=== PATIENT | female | born 1995 | race Caucasian/White ===

== ENCOUNTER → 2017-06-08 10:52 | Outpatient (CLI) | payer MEDICAID, SELFPAY ==
[2017-06-08 16:08] LABS: Chlamydia Trachomatis by PCR Negative (Negative); Neisserai gonorrhoeae by PCR Negative (Negative); Probe Check PASS; Sample Adequacy Control PASS; Specimen Processing Control PASS
== END ==
PROVIDERS: Family Provider Family Medicine; PCP Family Medicine; Visit Provider Obstetrics & Gynecology
DX: Z11.3 Encounter for screening for infections with a predominantly sexual mode of transmission (principal); Z32.01 Encounter for pregnancy test, result positive
CPT/HCPCS: 87491; 87591

== ENCOUNTER → 2017-06-21 16:17 | Outpatient (CLI) | payer MEDICAID, SELFPAY ==
[2017-06-21 18:03] LABS: Absolute Lymphocyte Count 2.36 X10^3/ul (0.83-4.51); Absolute Neutrophil Count 6.8 X10^3/uL (2.0-7.7); Basophil# 0.05 X10^3/uL; Basophil% 0.5 % (0-1); Eosinophil# 0.21 X10^3/uL; Eosinophils% 2.1 % (0-5); Hematocrit 38.9 % (37-47); Hemoglobin 13.1 g/dl (12.0-15.0); Lymphocyte # 2.36 X10^3/ul (4.0); Lymphocyte % 23.5 % (19-41); Mean Corp Hgb Conc 33.7 g/gl (32-36); Mean Corpuscular Volume 92.2 fL (81-99); Mean Platelet Vol. 11.2 fl (6.2-12.0); Monocyte# 0.58 X10^3/uL; Monocyte% 5.8 % (0-10); Neutrophil # 6.84 X10^3/uL (2.7-7.7); POSITIVE COUNT NO; POSITIVE DIFFERENTIAL NO; POSITIVE MORPHOLOGY NO; Platelet Count 169 K/mm3 (150-450); RBC Distribution Width CV 13.3 % (11.6-14.6); RBC Distribution Width SD 43.8 fl (35.1-43.9); Red Blood Count 4.22 M/mm3 (4.2-5.4); White Blood Count 10.1 K/mm3 (4.4-11.0)
[2017-06-21 18:40] LABS: Color, Urine Yellow (Yellow); Glucose, Dipstick Normal (Normal); Ketone-Dipstick Negative (Negative); Leukocyte Esterase-Dipstick Negative /ul (Negative); Nitrite-Dipstick Negative (Negative); Occult Blood-Urine Negative /ul (Negative); Protein-Dipstick Negative (Negative); Urine Bilirubin Dipstick Negative (Negative); Urine Clarity Clear (Clear); Urine Urobilinogen Normal (Normal); Urine pH 6.5 (5.0 - 8.0)
[2017-06-21 19:06] LABS: Thyroid Stim Hormone (TSH) 1.68 uIU/mL (0.358-3.74)
[2017-06-21 19:32] LABS: COTININE Drug Screen Negative (<200 ng/mL)
[2017-06-21 19:51] LABS: HIV - WCH Non-Reactive (Nonreactive); Rubella IgG 72.4 IU/mL
[2017-06-21 20:43] LABS: Amphetamine Urine VISTA NEGATIVE (<1000 ng/mL); Barbiturate Urine VISTA NEGATIVE (< 200 ng/mL); Benzodiazepine Urine VISTA NEGATIVE (< 200 ng/mL); Cocaine Urine VISTA NEGATIVE (< 300 ng/mL); Ecstacy Urine VISTA NEGATIVE (< 500 ng/mL); Methadone Urine VISTA NEGATIVE (< 300 ng/mL); PCP Urine VISTA NEGATIVE (< 25 ng/mL); THC Urine VISTA NEGATIVE (< 50 ng/mL); Vista UDS pH Range 6
[2017-06-23 10:19] LABS: HEPATITIS B SURFACE AG Negative (Negative); Hep C Antibodies 0.1 s/co ratio (0.0-0.9)
[2017-06-25 01:51] LABS: Prenatal RPR NONREACTIVE (NONREACTIVE)
== END ==
PROVIDERS: Visit Provider Obstetrics & Gynecology
DX: Z34.81 Encounter for supervision of other normal pregnancy, first trimester (principal)
CPT/HCPCS: 36415; 80307; 81002; 84443; 85025; 86703; 86762; 86803; 87340

== ENCOUNTER → 2017-10-03 08:38 | Outpatient (CLI) | payer BC, MEDICAID, SELFPAY ==
[2017-10-03 11:10] LABS: Hematocrit 36.1 % (37-47); Hemoglobin 12.1 g/dl (12.0-15.0); Mean Corp Hgb Conc 33.5 g/gl (32-36); Mean Corpuscular Hgb 31.3 pg (27.0-32.0); Mean Corpuscular Volume 93.3 fL (81-99); Mean Platelet Vol. 10.7 fl (6.2-12.0); Platelet Count 122 K/mm3 (150-450); RBC Distribution Width CV 13.1 % (11.6-14.6); RBC Distribution Width SD 44.3 fl (35.1-43.9); Red Blood Count 3.87 M/mm3 (4.2-5.4); White Blood Count 8.6 K/mm3 (4.4-11.0)
[2017-10-03 11:11] LABS: Scan Indicated on CBC? Y/N NO
[2017-10-03 11:19] LABS: Glucose Challenge Gest 1H 50g 76 mg/dL (70-140)
== END ==
PROVIDERS: Visit Provider Obstetrics & Gynecology
DX: Z34.82 Encounter for supervision of other normal pregnancy, second trimester (principal)
CPT/HCPCS: 36415; 82950; 85027

== ENCOUNTER → 2017-11-07 09:43 | Outpatient (CLI) | payer BC, MEDICAID, SELFPAY ==
[2017-11-07 11:12] LABS: Hematocrit 37.3 % (37-47); Hemoglobin 12.7 g/dl (12.0-15.0); Mean Corpuscular Hgb 32.2 pg (27.0-32.0); Mean Corpuscular Volume 94.4 fL (81-99); Mean Platelet Vol. 11.3 fl (6.2-12.0); Platelet Count 117 K/mm3 (150-450); RBC Distribution Width CV 12.7 % (11.6-14.6); RBC Distribution Width SD 42.4 fl (35.1-43.9); Red Blood Count 3.95 M/mm3 (4.2-5.4); White Blood Count 11.8 K/mm3 (4.4-11.0)
[2017-11-07 11:14] LABS: Scan Indicated on CBC? Y/N NO
[2017-11-07 12:49] LABS: Amphetamine Urine VISTA NEGATIVE (<1000 ng/mL); Barbiturate Urine VISTA NEGATIVE (< 200 ng/mL); Benzodiazepine Urine VISTA NEGATIVE (< 200 ng/mL); Cocaine Urine VISTA NEGATIVE (< 300 ng/mL); Ecstacy Urine VISTA NEGATIVE (< 500 ng/mL); Methadone Urine VISTA NEGATIVE (< 300 ng/mL); PCP Urine VISTA NEGATIVE (< 25 ng/mL); THC Urine VISTA NEGATIVE (< 50 ng/mL); Vista UDS pH Range 6
== END ==
PROVIDERS: Visit Provider Obstetrics & Gynecology
DX: O99.113 Other diseases of the blood and blood-forming organs and certain disorders involving the immune mechanism complicating pregnancy, third trimester (principal); D69.6 Thrombocytopenia, unspecified; Z3A.00 Weeks of gestation of pregnancy not specified
CPT/HCPCS: 36415; 80307; 85027

== ENCOUNTER → 2017-12-05 09:24 | Outpatient (CLI) | payer BC, MEDICAID, SELFPAY ==
[2017-12-05 11:16] LABS: Hematocrit 39.6 % (37-47); Hemoglobin 13.1 g/dl (12.0-15.0); Mean Corp Hgb Conc 33.1 g/gl (32-36); Mean Corpuscular Hgb 31.1 pg (27.0-32.0); Mean Corpuscular Volume 94.1 fL (81-99); Mean Platelet Vol. 11.5 fl (6.2-12.0); Platelet Count 120 K/mm3 (150-450); RBC Distribution Width CV 13.2 % (11.6-14.6); Red Blood Count 4.21 M/mm3 (4.2-5.4); White Blood Count 11.4 K/mm3 (4.4-11.0)
[2017-12-05 11:17] LABS: Scan Indicated on CBC? Y/N NO
[2017-12-05 13:51] LABS: Group B Strep DNA By PCR Negative (Negative); Internal Control PASS; Probe Check PASS; Specimen Processing Control PASS
== END ==
PROVIDERS: Visit Provider Obstetrics & Gynecology
DX: Z36.85 Encounter for antenatal screening for Streptococcus B (principal); O99.119 Other diseases of the blood and blood-forming organs and certain disorders involving the immune mechanism complicating pregnancy, unspecified trimester; D69.6 Thrombocytopenia, unspecified; Z3A.00 Weeks of gestation of pregnancy not specified
CPT/HCPCS: 36415; 85027; 87081; 87653

== ENCOUNTER 2017-12-10 14:00 | Outpatient (CLI) | payer BC, MEDICAID, SELFPAY ==
[2017-12-10 14:20] VITALS: BMI 29.5
--- NOTE | 2017-12-10 21:00 | OB.TRI.NOTE ---
History of Present Illness Was patient seen by the physician?: No Reason For Visit: R/O LABOR Date of Service: 12/10/17 Final ROD: 01/02/18 Final ROD Source: US <20 weeks Gestational age: 36 Weeks and 5 Days History of Present Illness: 22yo @ 36 5/7 weeks gestation with swelling in feet, contractions who is concerned about preeclampsia. Allergies No Known Allergies Allergy (Verified 12/10/17 14:21) Physical Exam Vitals: AVSS NST - FHR Rate Baby A Baseline: 125 Variability:: Moderate Accelerations:: 15 x 15 Decelerations:: None NST Reactive:: Yes FHR Category:: Category I Uterine Activity:: 1-2/10 Impression/Plan 22yo @ 36 5/7wga with edema, reactive NST -No headache, vision changes per report -BP wnl -d/c home
== END 2017-12-10 15:35 | disposition home or self-care (01) ==
LOC: WPOUT 14:07 → WP 14:09
PROVIDERS: Visit Provider Obstetrics & Gynecology
DX: O47.03 False labor before 37 completed weeks of gestation, third trimester (principal); O12.03 Gestational edema, third trimester; Z3A.36 36 weeks gestation of pregnancy
CPT/HCPCS: 59025; 99218; G0378

== ENCOUNTER 2017-12-24 15:55 | Outpatient (CLI) | payer BC, MEDICAID, SELFPAY ==
[2017-12-24 16:08] VITALS: BMI 31.1
--- NOTE | 2017-12-25 06:53 | OB.TRI.NOTE ---
History of Present Illness Date of Service: 12/24/17 Was patient seen by the physician?: No Reason For Visit: SWELLING Date of Service: 12/24/17 Final ROD: 01/02/18 Final ROD Source: US <20 weeks Gestational age: 38 Weeks and 6 Days History of Present Illness: Complaints of LE swelling. Denies headaches. Allergies No Known Allergies Allergy (Verified 12/10/17 14:21) Review of Systems Constitutional: Denies: Chills, Night Sweats Eyes: Denies: Double vision, Vision Change HEENT: Denies: Ear Pain, Eye Pain Cardiovascular: Reports: Edema - LE 1+. Denies: Chest Pain, Chest Pressure, Chest Tightness Respiratory: Denies: Shortness of Breath Gastrointestinal: Denies: Abdominal Pain Genitourinary: Denies: Dysuria Physical Exam General: Alert, Oriented x3, Cooperative, No apparent distress Cardiovascular: Regular rate, Regular Rhythm Lungs: Clear to auscultation, Normal air movement Abdomen: Soft, Non Tender, Non-Distended, Gravid, Appropriate for Gestational Age Neurological: Deep Tendon Reflexes 2+/4 and Symmetrical, Neuro grossly intact, - - No clonus Estimated gestational size: Appropriate for gestational size Presentation: Cephalic NST - FHR Rate Baby A Baseline: 140s Variability:: Moderate Accelerations:: 15 x 15 Decelerations:: None NST Reactive:: Yes, Appropriate for gestational age FHR Category:: Category I Uterine Activity:: Irregular Impression/Plan Some edema but no signs of preeclampsia. BP normal. Not in labor. Reassuring FHR status. Will consider repeat C/S vs . Will discuss in office at f/u visit Monday.
== END 2017-12-24 17:20 | disposition home or self-care (01) ==
LOC: WPOUT 16:03 → WP 16:04
PROVIDERS: Visit Provider Obstetrics & Gynecology
DX: O12.03 Gestational edema, third trimester (principal); Z3A.38 38 weeks gestation of pregnancy
CPT/HCPCS: 59025; 59050; 99218; G0378

== ENCOUNTER 2017-12-27 09:50 | Inpatient (IN) | payer BC, MEDICAID, SELFPAY ==
[2017-12-27] VITALS (19 sets, daily range): BP systolic 97–148; BP diastolic 53–88; PULSE 88–126; RESP 14–25; TEMP 36.1–37.1; O2SAT 96–100; BMI 30.9
[2017-12-27 10:46] LABS: Absolute Lymphocyte Count 1.77 X10^3/ul (0.83-4.51); Absolute Neutrophil Count 6.9 X10^3/uL (2.0-7.7); Basophil# 0.02 X10^3/uL; Basophil% 0.2 % (0-1); Eosinophil# 0.06 X10^3/uL; Eosinophils% 0.6 % (0-5); Hematocrit 38.3 % (37-47); Lymphocyte # 1.77 X10^3/ul (4.0); Lymphocyte % 18.8 % (19-41); Mean Corp Hgb Conc 33.9 g/gl (32-36); Mean Corpuscular Hgb 31.9 pg (27.0-32.0); Mean Corpuscular Volume 93.9 fL (81-99); Mean Platelet Vol. 11.4 fl (6.2-12.0); Monocyte# 0.61 X10^3/uL; Monocyte% 6.5 % (0-10); Neutrophil # 6.88 X10^3/uL (2.7-7.7); Neutrophil % 73.4 % (47-70); Platelet Count 106 K/mm3 (150-450); RBC Distribution Width SD 43.2 fl (35.1-43.9); Red Blood Count 4.08 M/mm3 (4.2-5.4); White Blood Count 9.4 K/mm3 (4.4-11.0)
[2017-12-27 10:49] LABS: POSITIVE COUNT NO; POSITIVE DIFFERENTIAL NO; POSITIVE MORPHOLOGY NO
[2017-12-27 10:52] LABS: International Normalized Ratio 0.9; Prothrombin Time (Protime)PT. 12.3 SECONDS (11.7-14.9)
[2017-12-27 10:53] LABS: Partial Thromboplast Time 25.1 Seconds (24.1-36.2)
--- NOTE | 2017-12-27 11:06 | DCINST_ITS ---
Discharge Diet: No Restrictions Discharge Activity: Return to Normal Activity, May Not Drive, May not drive while taking narcotic pain medications., May Shower Return to work on:: 02/26/18 May shower in (days): 0 May resume sexual activity in: 4-6 weeks Call your doctor if your incision/area has: Sudden Increased Bleeding, Increased Pain/ Swelling, Increased Redness, Foul Smelling Discharge, Swelling at the incision site Call your doctor if you observe: Fever of 101 or Higher, Inability to urinate, Inability to have a bowel movement, Using more than one pad per hour, Shortness of breath, Chest pain, Calf discomfort, Uncontrolled pain Remove Dressing in (days):: 3 Cleanse incision/area with: Soap & Water Additional Instructions: If you experience any of the following, contact your healthcare provider. * Bleeding that soaks a pad every hour for 2 hours * Fever 100.4 or higher * Unrelieved incision or abdominal pain * Swelling, redness, discharge or bleeding from your incision or episiotomy site * Your incision begins to separate * Problems urinating (including inability to urinate or burning while urinating) . * Visual changes * Severe headache * Flu-like symptoms * Pain or redness in one of both of your breasts * Pain, warmth, tenderness or swelling in your legs, especially the calf area * Frequent nausea and vomiting * Symptoms of depression or anxiety If you experience any of the following, call 911 or go to the nearest Emergency Room. * Chest pain * Problems breathing * Seizure activity * Partial or complete paralysis of a body part, slurred speech, weakness or drooping of the face, or a sudden inability to walk or hold your balance Allergies/Adverse Reactions: Allergies No Known Allergies Allergy (Verified 12/10/17 14:21) Medications to take at Discharge Vits [Prenatabs FA ] 1 tablet PO DAILY 06/10/15 Docusate Sodium [Colace] 100 mg PO BID PRN PRN #60 capsule 07/08/15 proMETHazine tablet [Phenergan tablet] 25 mg PO PRN PRN 12/10/17 Ibuprofen 600 mg PO 4X/DAY #30 tab 12/27/17 Oxycodone [Oxyir] 5 mg PO Q4H PRN PRN 7 Days #28 tab 12/27/17 The following prescriptions were given: Oxycodone [Oxyir] 5 mg PO Q4H PRN PRN 7 Days #28 tab PRN Reason: Mod-Severe Pain (4-02/14) Ibuprofen 600 mg PO 4X/DAY #30 tab Follow-Up: Call to make an appointment with your doctor for an incision check in 1-2 weeks. You will also need a 6 week post- follow up appointment. Test results from this visit will be discussed in further detail at your follow- up appointment, if applicable. Please Follow Up With: Wellington Bragg MD When: one week Primary Care Physician: Care Physician,No Primary [Primary Care Provider] - Proposed Discharge Date: 12/30/17
--- NOTE | 2017-12-27 11:08 | OP.PCM_ITS ---
Problem List (1) Previous section complicating Status: Chronic Report of Operation Date of Procedure: 12/27/17 Pre-Operative Diagnosis: Previous Section Requesting Repeat Post-Operative Diagnosis: Same Surgery/Procedure Performed:: Repeat Low Transverse Section Description of Surgical Findings:: Live male in vertex presentation. Amniotic fluid clear. weight [id number]. Apgars 8/9. Lower uterine segment extremely thin. Otherwise normal appearing uterus. Ovaries appear normal. No significant pelvic or abdominal adhesions noted. electrode cleaning machine operator: Khushbu Saenz Type of Anesthesia:: Spinal Anesthesiologist: Ethan Fry Special Medications: none Specimen's removed: none Drains: Tay Estimated Blood Loss (mL): 800cc Fluids Replaced: 1500cc LR Description of Procedure: Merced was taken to the OR with IV running. She was given 2 grams of Ancef intravenously prior to the surgery for surgical prophylaxis. SCDs were in place and operational throughout the case. Spinal anesthesia was then introduced without complication. A tay catheter was then placed. She was then prepped and draped in the lithotomy position with a leftward tilt. Once anesthesia was deemed adequate a Pfannesteil skin incision was made through the previous scar. The underlying subcutaneous tissue was dissected down to the level of fascia using blunt and sharp dissection. The fascia was then incised horizontally in the midline and this incision was extended bilaterally with the Lewis scissors. The upper portion of the fascial defect was grasped with two Natali clamps, elevated and the rectus muscles dissected off with blunt and sharp dissection. In a similar fashion the rectus muscles were dissected off the lower fascial defect. The rectus muscles were then in the midline , the peritoneum identified and entered sharply. The peritoneal defect was then enlarged using blunt retraction. A bladder blade was then placed. The vesicouterine peritoneum was then identified and entered sharply. A bladder flap was created. The bladder blade was replaced. The lower uterine segment was then incised in a transverse fashion. Once the cavity was entered the defect was enlarged using blunt lateral and superior traction. The bladder blade was removed and the baby's head was delivered atraumatically. The body was then delivered. The mouth was suctioned with a bulb suction. Delayed cord clamping was employed. The cord was then clamped and cut. The baby was then handed to the waiting nursery nurse for evaluation. The placenta was then delivered manually. The cavity was cleared of all clot and membranes. The uterus was then exteriorized. The bladder blade replaced. The uterine incision was then closed in two layers with #1 Vicryl suture. Hemostasis was excellent. The posterior cul de sac was then cleared of all clot and fluid. The uterus was then returned to the abdomen. The gutters were cleared of all clot and fluid. The uterine incision was reinspected and found to be hemostatic. The peritoneum was then closed with 2-0 Vicryl. The rectus muscles were reapproximated with 0-Vicryl suture. The fascia was closed with a running stitch of #1 Stratofix suture. The subcuticular tissue was closed with 2 -0 Vicryl. The skin was closed with a subcuticular stitch of 4-0 Monocryl suture. Sponge, lap, needle, and instrument counts were correct. She was taken to the recovery room in stable condition. Grafts/Implants Used: none - Complications none - Admit VTE Documentation VTE Present on Admission: No VTE Mechan Device Prophylaxis: SCD's VTE Pharm Prophylaxis ordered?: No
[2017-12-27] MEDS: Sodium Citrate/Citric Acid 30 ML UDC PO (11:51)
[2017-12-27] MEDS: Lactated Ringers 1,000 ML 999 ML IV ×2 (11:52→15:45)
[2017-12-27] MEDS: Lactated Ringers 1,000 ML 150 ML IV (11:53)
[2017-12-27] MEDS: Oxytocin 30 units/NS 500 ml 30 UNITS/500 ML IV.SOLN 167 UNITS IV (12:33)
[2017-12-27] MEDS: Lactated Ringers 1,000 ML 100 ML IV ×2 (14:41→16:39)
[2017-12-27] MEDS: 0.9% Normal Saline 1,000 ML 500 ML IV (16:15)
[2017-12-27 16:19] LABS: Absolute Lymphocyte Count 3.11 X10^3/ul (0.83-4.51); Absolute Neutrophil Count 15.2 X10^3/uL (2.0-7.7); Basophil# 0.04 X10^3/uL; Basophil% 0.2 % (0-1); Eosinophil# 0.03 X10^3/uL; Eosinophils% 0.2 % (0-5); Hematocrit 33.2 % (37-47); Hemoglobin 10.7 g/dl (12.0-15.0); Lymphocyte # 3.11 X10^3/ul (4.0); Mean Corp Hgb Conc 32.2 g/gl (32-36); Mean Corpuscular Hgb 30.9 pg (27.0-32.0); Mean Platelet Vol. 11.3 fl (6.2-12.0); Monocyte# 0.97 X10^3/uL; Neutrophil % 78.3 % (47-70); Platelet Count 162 K/mm3 (150-450); RBC Distribution Width CV 13.3 % (11.6-14.6); RBC Distribution Width SD 46.1 fl (35.1-43.9); Red Blood Count 3.46 M/mm3 (4.2-5.4); White Blood Count 19.4 K/mm3 (4.4-11.0)
[2017-12-27 16:20] LABS: POSITIVE COUNT NO; POSITIVE DIFFERENTIAL NO; POSITIVE MORPHOLOGY NO
[2017-12-27 16:29] LABS: Fibrinogen 447 mg/dl (203-444); Partial Thromboplast Time 23.4 Seconds (24.1-36.2)
--- NOTE | 2017-12-27 16:48 | NURSING ---
1535 Support person reported Merced feels nauseated, doesn't look good 1544 BP per monitor 61/32 O2 sat 95%. LR fluid bolus initiated. FF2/U and to the right, consistant with post op assessment, vag bleeding minimal 1546 47/23 O2 sat 100%. More staff called to room 1548 45/34 o2 sat 100% Pt to left side 1549 69/26 o2 sat 99% Dr Camron Fry ,anesthesia, and Dr Bragg called to come to room 1554 78/40 o2 sat 94%. Dr bragg here, performs U/S at bedside. Dr Camron Fry, Dr Huffman anesthesia here hemorrhage panel ordered, T&C x 2 units ordered 1601 labs drawn, 75/54 hr 108, 99% o2 sat Guru Fry and Nathanael left room 1603 2nd iv started normal saline, wide open. Dr bragg left room 1604 102/56 Pad changed, small clot noted, lochia remains small FF 2/U to the right 1609 118/50 1615 106/60 o2 sat 99% HR 110 radial. EKG applied 1619 123/59 P 126 resp 16 o2 sat 99 1624 135/87 p 112 o2 sat 99% 1626 lochia small fundus unchanged 1629 113/66 p114 r 25 o2 sat 99% t 97.0 temporal 1632sitting up talking on phone 1634 105/61 P115 r 20 1645 119/76 p 115 r 20 o2 sat 99% 1709 102/64 p136 r20 o2 sat 98 %. attempting to breast feed
--- NOTE | 2017-12-27 18:01 | NURSING ---
1731 Rn remaining at bedside. Pt sitting up semifowlers with support person at bedside. Reports feeling ok. BP 90/70. 1743 Dr. Bragg in room to evaluate pt. Pt sitting upright in bed talking with visitors. VS 102/61, 128, 28 97%
--- NOTE | 2017-12-27 18:08 | PCM.PN.OB ---
Subjective: Now appears well. No complaints. Objective: AFeb BP 100/60 - Physical Exam General: Alert, Oriented x3, Cooperative, No apparent distress Lungs: Clear to auscultation, Normal air movement Cardiovascular: Regular rate, Regular Rhythm Abdomen: Soft, Non Tender, Non-Distended, - - Incision intact Extremities: No edema Skin: No rashes Neurological: Neuro grossly intact Psych/Mental Status: Normal Affect Comment: Lochia light Vital Signs Temp Pulse Resp BP Pulse Ox 97.0 F L 122 H 14 98/59 L 97 12/27/17 16:29 12/27/17 17:25 12/27/17 17:25 12/27/17 17:25 12/27/17 17:25 Oxygen Delivery Method Room Air Weight: 215 lb 12.8 oz Body Mass Index (BMI) 30.9 Intake and Output for Last 24 Hours 12/25/17 12/26/17 12/27/17 23:59 23:59 23:59 Intake Total 2322 / 2322 Output Total 550 / 550 Balance 1772 / 1772 Laboratory Tests Past 24 Hrs 12/27/17 12/27/17 12/27/17 10:30 10:30 10:30 WBC 9.4 RBC 4.08 L Hgb 13.0 Hct 38.3 MCV 93.9 MCH 31.9 MCHC 33.9 RDW 13.0 RDW Differential 43.2 Plt Count 106 L MPV 11.4 Immature Gran % (Auto) 0.500 Neut % (Auto) 73.4 H Lymph % (Auto) 18.8 L [place] % (Auto) 6.5 Eos % (Auto) 0.6 Baso % (Auto) 0.2 Absolute Neuts (auto) 6.9 Absolute Lymphs (auto) 1.77 Total Counted Not Reportable PT 12.3 INR 0.9 APTT 25.1 Fibrinogen Blood Type O POSITIVE Antibody Screen NEGATIVE Crossmatch 12/27/17 12/27/17 12/27/17 10:30 16:00 16:00 WBC 19.4 H RBC 3.46 L Hgb 10.7 L Hct 33.2 L MCV 96.0 MCH 30.9 MCHC 32.2 RDW 13.3 RDW Differential 46.1 H Plt Count 162 MPV 11.3 Immature Gran % (Auto) 0.300 Neut % (Auto) 78.3 H Lymph % (Auto) 16.0 L [place] % (Auto) 5.0 Eos % (Auto) 0.2 Baso % (Auto) 0.2 Absolute Neuts (auto) 15.2 H Absolute Lymphs (auto) 3.11 Total Counted Not Reportable PT 13.0 INR 1.0 APTT 23.4 L Fibrinogen 447 H Blood Type Antibody Screen Crossmatch See Detail Medical Necessity - Tobacco Use Smoking Status: Former smoker Assessment/Plan All Active Problems Gestational hypertension with significant proteinuria, delivered (Acute) Was called to the bedside emergently for extremely low blood pressures as low as 40/25. I performed US with known postsurgical hematoma on the left lower pelvis measuring same as in OR. Uterus normal with no intracavitary fluid collection. No free fluid in the pelvis or abdomen noted. Urine output is adequate. CBC drawn and hgb 10.7. PT/ptt normal. Fibrinogen normal to high. BPs now better. Will repeat CBC to ensure stable.
[2017-12-27] MEDS: 0.9% Saline Lock 10 ML Syringe IV (18:28)
[2017-12-27 18:44] LABS: Hematocrit 31.2 % (37-47); Hemoglobin 10.1 g/dl (12.0-15.0); Mean Corp Hgb Conc 32.4 g/gl (32-36); Mean Corpuscular Hgb 30.5 pg (27.0-32.0); Mean Corpuscular Volume 94.3 fL (81-99); Mean Platelet Vol. 10.8 fl (6.2-12.0); Platelet Count 140 K/mm3 (150-450); RBC Distribution Width CV 13.3 % (11.6-14.6); RBC Distribution Width SD 45.2 fl (35.1-43.9); Red Blood Count 3.31 M/mm3 (4.2-5.4); Scan Indicated on CBC? Y/N NO; White Blood Count 18.2 K/mm3 (4.4-11.0)
[2017-12-27] MEDS: Cefazolin 1 GM/50 ML BAG IV (20:29)
[2017-12-28] VITALS (9 sets, daily range): BP systolic 101–119; BP diastolic 55–68; PULSE 96–123; RESP 16–18; TEMP 36–37; O2SAT 97–99
[2017-12-28] MEDS: Lactated Ringers 1,000 ML 100 ML IV (02:49)
[2017-12-28] MEDS: Cefazolin 1 GM/50 ML BAG IV (04:23)
--- NOTE | 2017-12-28 06:47 | PCM.PN.OB ---
Subjective: Some soreness but overall doing well. Bleeding light. Objective: Afeb VSS. Hgb pending. - Physical Exam General: Alert, Oriented x3, Cooperative, No apparent distress Lungs: Clear to auscultation, Normal air movement Cardiovascular: Regular rate, Regular Rhythm Abdomen: Non Tender, Non-Distended, - - incision dressing dry Extremities: Edema - mild Skin: No rashes Neurological: Neuro grossly intact Psych/Mental Status: Normal Affect Comment: lochia light Vital Signs Temp Pulse Resp BP Pulse Ox 96.8 F L 105 H 18 117/58 L 97 12/28/17 04:32 12/28/17 05:49 12/28/17 05:49 12/28/17 04:32 12/28/17 05:49 Oxygen Delivery Method Room Air Weight: 215 lb 12.8 oz Body Mass Index (BMI) 30.9 Intake and Output for Last 24 Hours 12/26/17 12/27/17 12/28/17 23:59 23:59 23:59 Intake Total 4100 / 4100 1048 / 1048 Output Total 775 / 775 600 / 600 Balance 3325 / 3325 448 / 448 Laboratory Tests Past 24 Hrs 12/27/17 12/27/17 12/27/17 10:30 10:30 10:30 WBC 9.4 RBC 4.08 L Hgb 13.0 Hct 38.3 MCV 93.9 MCH 31.9 MCHC 33.9 RDW 13.0 RDW Differential 43.2 Plt Count 106 L MPV 11.4 Immature Gran % (Auto) 0.500 Neut % (Auto) 73.4 H Lymph % (Auto) 18.8 L [place] % (Auto) 6.5 Eos % (Auto) 0.6 Baso % (Auto) 0.2 Absolute Neuts (auto) 6.9 Absolute Lymphs (auto) 1.77 Total Counted Not Reportable PT 12.3 INR 0.9 APTT 25.1 Fibrinogen Blood Type O POSITIVE Antibody Screen NEGATIVE Crossmatch 12/27/17 12/27/17 12/27/17 10:30 16:00 16:00 WBC 19.4 H RBC 3.46 L Hgb 10.7 L Hct 33.2 L MCV 96.0 MCH 30.9 MCHC 32.2 RDW 13.3 RDW Differential 46.1 H Plt Count 162 MPV 11.3 Immature Gran % (Auto) 0.300 Neut % (Auto) 78.3 H Lymph % (Auto) 16.0 L [place]ane % (Auto) 5.0 Eos % (Auto) 0.2 Baso % (Auto) 0.2 Absolute Neuts (auto) 15.2 H Absolute Lymphs (auto) 3.11 Total Counted Not Reportable PT 13.0 INR 1.0 APTT 23.4 L Fibrinogen 447 H Blood Type Antibody Screen Crossmatch See Detail 12/27/17 12/28/17 18:30 05:55 WBC 18.2 H Pending RBC 3.31 L Pending Hgb 10.1 L Pending Hct 31.2 L Pending MCV 94.3 Pending MCH 30.5 Pending MCHC 32.4 Pending RDW 13.3 Pending RDW Differential 45.2 H Pending Plt Count 140 L Pending MPV 10.8 Immature Gran % (Auto) Neut % (Auto) Lymph % (Auto) Dane % (Auto) Eos % (Auto) Baso % (Auto) Absolute Neuts (auto) Absolute Lymphs (auto) Total Counted PT INR APTT Fibrinogen Blood Type Antibody Screen Crossmatch Medical Necessity - Tobacco Use Smoking Status: Former smoker Assessment/Plan All Active Problems Gestational hypertension with significant proteinuria, delivered (Acute) Doing well on POD#1. Check hgb today. Continue routine PO care.
[2017-12-28 06:57] LABS: Hematocrit 25.3 % (37-47); Hemoglobin 8.3 g/dl (12.0-15.0); Mean Corp Hgb Conc 32.8 g/gl (32-36); Mean Corpuscular Hgb 31.6 pg (27.0-32.0); Mean Corpuscular Volume 96.2 fL (81-99); Mean Platelet Vol. 10.7 fl (6.2-12.0); Platelet Count 124 K/mm3 (150-450); RBC Distribution Width CV 13.4 % (11.6-14.6); RBC Distribution Width SD 43.9 fl (35.1-43.9); Red Blood Count 2.63 M/mm3 (4.2-5.4); White Blood Count 13.6 K/mm3 (4.4-11.0)
[2017-12-28 07:01] LABS: Scan Indicated on CBC? Y/N NO
[2017-12-28] MEDS: Ketorolac 30 MG/ML Syringe IV ×2 (08:37→16:29)
--- NOTE | 2017-12-28 11:55 | NURSING ---
maggi castellon dc'ed pt oob up to stand and sit in chair pt tolerated well; denies any dizziness; pt gait steady;
[2017-12-28] MEDS: oxyCODONE 5 MG Tablet PO ×3 (12:40→20:45)
--- NOTE | 2017-12-28 14:26 | NURSING ---
pt up walking in [place]
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
--- NOTE | 2017-12-28 16:00 | NURSING ---
pt having some gas pain rt shoulder; pt to br to void missed part of hat about 50 cc in hat unable to assess amount; pt back to bed on left side to try and pass some gas
[2017-12-28] MEDS: 0.9% Saline Lock 10 ML Syringe IV (16:29)
--- NOTE | 2017-12-28 18:29 | NURSING ---
[address] brito made aware of pts abd distention in upper abd. and not passing gas and referred gas pain under rt shoulder; pt has walked, rested on side, has bowel sounds, taken gas x- pt wants to take senekot to try and move bowels;
[2017-12-28] MEDS: Senna/Docusate Sodium 1 Tablet PO (18:37)
[2017-12-29] MEDS: oxyCODONE 5 MG Tablet PO ×4 (00:50→15:16)
[2017-12-29 02:35] VITALS: BP 118/59; PULSE 100; RESP 18; TEMP 36.7; O2SAT 88
[2017-12-29] MEDS: Ketorolac 30 MG/ML Syringe IV ×2 (02:37→12:36)
[2017-12-29 05:46] LABS: Hemoglobin 7.5 g/dl (12.0-15.0); Mean Corp Hgb Conc 32.6 g/gl (32-36); Mean Corpuscular Hgb 31.1 pg (27.0-32.0); Mean Corpuscular Volume 95.4 fL (81-99); Mean Platelet Vol. 10.7 fl (6.2-12.0); Platelet Count 128 K/mm3 (150-450); RBC Distribution Width CV 13.8 % (11.6-14.6); RBC Distribution Width SD 48.3 fl (35.1-43.9); Red Blood Count 2.41 M/mm3 (4.2-5.4); White Blood Count 9.5 K/mm3 (4.4-11.0)
[2017-12-29 05:51] LABS: Scan Indicated on CBC? Y/N NO
--- NOTE | 2017-12-29 08:30 | NURSING ---
PATIENT CHANGING INFANT'S DIAPER UPON ENTRY TO THE ROOM. WHEN THE URINATED ON CLOTHES AND CRIB SHEET PATIENT STATED, COME ON!WHY DID YOU HAVE TO DO THAT! IN A HARSH TONE. THEN ASSISTED WITH DIAPER CHANGE WHILE PATIENT CONTINUED TO EXPRESS HER FRUSTRATION WITH THE SITUATION. UPON RETURN TO THE ROOM WITH CLEAN LINEN THIS NURSE PATIENT INFANT.
[2017-12-29] MEDS: Prenatal Vits Tablet 1 TABLET PO (08:39)
[2017-12-29] MEDS: Senna/Docusate Sodium 1 Tablet PO (08:42)
[2017-12-29 08:53] VITALS: BP 101/60; PULSE 105; RESP 16; TEMP 36.5
--- NOTE | 2017-12-29 08:53 | PCM.PN.OB ---
Subjective: Cherish is sore and notes she is slow moving, but steady walking. Pain is improved with medication. No flatus yet. Tolerates a regular diet and shoulder gas related pain resolved. She denies chest pain, shortness of breath, lightheadedness or palpitations. Objective: avss - Physical Exam General: Alert, Oriented x3, Cooperative, No apparent distress HEENT: Atraumatic, Normocephalic Lungs: Clear to auscultation, Normal air movement Cardiovascular: Regular rate, Regular Rhythm, Normal S1, Normal S2 Abdomen: Bowel Sounds Present, Soft, Non Tender, Non-Distended, - - Fundus firm and nontender, incisional dressing c/d/i Extremities: No Calf Tenderness, - - trace LE edema Neurological: Neuro grossly intact Psych/Mental Status: Normal Affect, Appropriate, Alert and oriented to time, place, person, mood and affect Vital Signs Temp Pulse Resp BP Pulse Ox 98.1 F 100 18 118/59 L 88 12/29/17 02:35 12/29/17 02:35 12/29/17 02:35 12/29/17 02:35 12/29/17 02:35 Oxygen Delivery Method Room Air Weight: 97.885 kg Body Mass Index (BMI) 30.9 Intake and Output for Last 24 Hours 12/27/17 12/28/17 12/29/17 23:59 23:59 23:59 Intake Total 4100 / 4100 1775 / 1775 Output Total 775 / 775 1600 / 1600 200 / 200 Balance 3325 / 3325 175 / 175 -200 / -200 Laboratory Tests Past 24 Hrs 12/29/17 05:10 WBC 9.5 RBC 2.41 L Hgb 7.5 L Hct 23.0 L MCV 95.4 MCH 31.1 MCHC 32.6 RDW 13.8 RDW Differential 48.3 H Plt Count 128 L MPV 10.7 Medical Necessity - Tobacco Use Smoking Status: Former smoker Assessment/Plan All Active Problems Gestational hypertension with significant proteinuria, delivered (Acute) 22yo POD#2 s/p RLTCS with post-op anemia doing well. -Anemia - pt asx - recommend iron supplementation at home -Plan for d/c home today
[2017-12-29] MEDS: 0.9% Saline Lock 10 ML Syringe IV (12:37)
[2017-12-29 15:30] VITALS: BP 129/73; PULSE 101; RESP 18; TEMP 36.5
--- NOTE | 2017-12-29 16:06 | CASEMGMT ---
Social Work Labor and Delivery Unit Summary: Spoke with RN Roma today about observed interactions with mother and baby this morning. MOB appeared easily frustrated during a diaper change. Per RN, MOB has done better this afternoon of what RN has observed as far as lower frustration levels. This is not the first time this senior mortgage underwriter has been approached by nursing about MOB's observed frustration level, the first time was approached on 12-27-17 when MOB was feeding baby. In light of MOB having intermittent episodes of frustration, uncertainty as to level of support MOB will have after father of baby returns to work, and not clear on what choices MOB led MOB no longer having custody of older children this senior mortgage underwriter called [facility] ([facility]). Referral given to Shelbie Ya in the intake department. Brief maternal and infant histories provided. Reported also interactions with MOB and FOB during initial assessment, including FOBs comments and irritation about being asked to leave the room to talk with MOB. Assessment: MOB and baby are discharging home today. Community resource information have been given for home going. MOB has identified having all needed supplies for baby upon return home. [facility] has been alerted to discharge today. Plan: MOB and baby discharging home today. No other services requested or indicated. -SUMAYA Ying, CAR SP[employer]TER
== END 2017-12-29 15:55 | disposition home or self-care (01) | DRG 766 ==
PROVIDERS: Obstetrics & Gynecology; Admitting Provider Obstetrics & Gynecology; Visit Provider Obstetrics & Gynecology
PROC: 10D00Z1 Extraction of Products of Conception, Low, Open Approach (ICD-10-PCS; CPT 59514; principal; 2017-12-27 11:45)
DX: O34.211 Maternal care for low transverse scar from previous cesarean delivery (principal); N85.8 Other specified noninflammatory disorders of uterus; Z3A.39 39 weeks gestation of pregnancy; Z37.0 Single live birth; O14.94 Unspecified pre-eclampsia, complicating childbirth; Z87.891 Personal history of nicotine dependence
CPT/HCPCS: 85025; 85027; 85384; 85610; 85730; 86850; 86900; 86920; 99218; J7030; J7120; A4216; G0378; J2405

== ENCOUNTER → 2018-01-02 09:17 | Outpatient (CLI) | payer BC, MEDICAID, SELFPAY ==
[2018-01-02 09:34] LABS: Hemoglobin 7.5 g/dl (12.0-15.0); Mean Corp Hgb Conc 32.6 g/gl (32-36); Mean Platelet Vol. 9.1 fl (6.2-12.0); Platelet Count 178 K/mm3 (150-450); RBC Distribution Width CV 13.6 % (11.6-14.6); RBC Distribution Width SD 47.1 fl (35.1-43.9); Red Blood Count 2.42 M/mm3 (4.2-5.4); White Blood Count 11.4 K/mm3 (4.4-11.0)
[2018-01-02 09:38] LABS: Scan Indicated on CBC? Y/N NO
== END ==
PROVIDERS: Visit Provider Obstetrics & Gynecology
DX: O72.1 Other immediate postpartum hemorrhage (principal)
CPT/HCPCS: 36415; 85027

== ENCOUNTER → 2018-01-30 08:53 | Outpatient (CLI) | payer BC, SELFPAY ==
[2018-01-30 10:59] LABS: hCG Titer Quant., Serum 2 mIU/mL (<9 non-preg)
== END ==
PROVIDERS: Visit Provider Obstetrics & Gynecology
DX: Z30.9 Encounter for contraceptive management, unspecified (principal)
CPT/HCPCS: 36415; 84702

== ENCOUNTER → 2018-04-03 13:31 | Outpatient (CLI) | payer BC, MEDICAID, SELFPAY ==
[2018-04-03 15:58] LABS: Chlamydia Trachomatis by PCR Negative (Negative); Neisserai gonorrhoeae by PCR Negative (Negative); Probe Check PASS; Sample Adequacy Control PASS; Specimen Processing Control PASS
[2018-04-06 12:02] LABS: HPV Reflexed? NOT INDICATED
--- OUTSIDE RECORDS SUMMARY | 2018-05-30 02:46 | XMS RPT_ITS ---
:1995 Author Organization OHIP Support Name Relationship Address Phone WILLIE RUGGIERO Unavailable [address] + [address] [place] [address] BHAVANI HERNANDEZI Unavailable [address] + [place] [address] UE Unavailable Unavailable Unavailable WILLIE RUGGIERO Unavailable [address] + [address] [place] [address] MARY BRADY Unavailable [address] + [place] [address] UE Unavailable Unavailable Unavailable LEANDROJESSEDELVIN WILLIE Unavailable [address] + [address] [place] [address] MARY BRADY Unavailable [address] + [place] [address] UE Unavailable Unavailable Unavailable LEANDROJESSEDELVIN WILLIE Unavailable [address] + [address] [place] [address] MARY BRADY Unavailable [address] + [place] [address] UE Unavailable Unavailable Unavailable KISHANDELVIN WILLIE Unavailable [address] + [address] [place] [address] MARY BRADY Unavailable [address] + [place] [address] UE Unavailable Unavailable Unavailable LEANDROJESSEDELVIN WILLIE Unavailable [address] + [address] [place] [address] MARY BRADY Unavailable [address] + [place] [address] UE Unavailable Unavailable Unavailable LEANDROJESSEDELVIN WILLIE Unavailable [address] + [address] [place] [address] MARY BRADY Unavailable [address] + [place] [address] UE Unavailable Unavailable Unavailable WILLIE RUGGIERO Unavailable [address] + [address] [place] [address] HERNANDEZ BRADY Unavailable [address] + [place] [address] UE Unavailable Unavailable Unavailable WILLIE RUGGIERO Unavailable [address] + [address] [place] [address] HERNANDEZ BRADY Unavailable [address] + [place] [address] UE Unavailable Unavailable Unavailable WILLIE RUGGIERO Unavailable [address] + [address] [place] [address] HERNANDEZ BRADY Unavailable [address] + [place] [address] UE Unavailable Unavailable Unavailable WILLIE RUGGIERO Unavailable [address] + [address] [place] [address] HERNANDEZ BRADY Unavailable [address] + [place] [address] UE Unavailable Unavailable Unavailable WILLIE RUGGIERO Unavailable [address] + [address] [place] [address] HERNANDEZ BRADY Unavailable [address] + [place] [address] UE Unavailable Unavailable Unavailable Care Team Providers Name Role Phone Sienna Godfrey Attending Unavailable Malys, Nitza Primary Care Unavailable Seals, Wellington Attending Unavailable Malys, Nitza Primary Care Unavailable Seals, Wellington Attending Unavailable Seals, Wellington Attending Unavailable Seals, Wellington Attending Unavailable Seals, Wellington Attending Unavailable Seals, Wellington Admitting Unavailable Seals, Wellington Attending Unavailable SealWelilngton white Referring Unavailable Primay Care Physicia, No Primary Care Unavailable Shira Evangelista Attending Unavailable Shira Evangelista Referring Unavailable Primay Care Physicia, No Primary Care Unavailable Seals, Wellington Attending Unavailable Primay Care Physicia, No Primary Care Unavailable Jessica Pulido Attending Unavailable Primay Care Physicia, No Primary Care Unavailable Seals, Wellington Attending Unavailable Primay Care Physicia, No Primary Care Unavailable Seals, Wellington Attending Unavailable Primay Care Physicia, No Primary Care Unavailable PROBLEMS PROBLEMS DATE TYPE CONDITION / CODE ATTENDING STATUS SOURCE 04/03/2018 Unknown Z32.01 - Encounter SealWellington white for test, Community result positive / Hospital Z32.01(ICD-10) Repository 04/03/2018 Unknown Z11.3 - Encounter Seals, Wellington Pederson for screening for Community infections with a Hospital predominantly sexual Repository mode of transmission / Z11.3(ICD-10) 01/30/2018 Unknown Z30.9 - Encounter SealsWellington for contraceptive Community management, Hospital unspecified / Repository Z30.9(ICD-10) 12/29/2017 Unknown G89.18 - Other acute Seals, Wellington Pederson postprocedural pain Community / G89.18(ICD-10) Hospital Repository 12/05/2017 Unknown D69.6 - Seals, Wellington Pederson Thrombocytopenia, Community unspecified / Hospital D69.6(ICD-10) Repository 12/05/2017 Unknown Z36.85 - Encounter SealsWellington for Community screening for Hospital Streptococcus B / Repository Z36.85(ICD-10) 11/07/2017 Unknown Z34.83 - Encounter SealsWellington for supervision of Community other normal Hospital , third Repository trimester / Z34.83(ICD-10) 10/04/2017 Unknown Z34.82 - Encounter Seals, Wellington Pederson for supervision of Community other normal Hospital , second Repository trimester / Z34.82(ICD-10) 06/21/2017 Unknown Z34.81 - Encounter Seals, Wellington Pederson for supervision of Community other normal Hospital , first Repository trimester / Z34.81(ICD-10) PROCEDURES PROCEDURES No Procedure Records FoundRESULTS RESULTS CT/NG W[facility] BY PCR Collected: 04/03/2018 Status: F Source: [place] 8:50 AM [facility] REPOSITORY TYPE CODE TESTS RESULT OUT OF RANGE REFERENCE UNITS LAB L8200.2100 Negative Normal Chlam Negative Trac PCR LAB L8200.2200 Negative Normal NG by Negative PCR Performed By: #### L8200.1999 #### [facility] [address] [place], [address] PAP I-G W/RFX HRHPV Collected: 04/03/2018 Status: F Source: [place] 8:50 AM [facility] REPOSITORY Order Comment: CYTOLOGY INFORMATION: - CLINICAL INFORMATION: - DATE LMP/MENOPAUSE: RECENTLY STOPPED NURSING LMP - COLLECTION VIAL: Thin Prep Vial - DIRECTOR DIABETES SOURCE: CERVICAL/ENDOCERVICAL - COLLECTION TECHNIQUE: BRUSH/SPATULA Specimen Comment: [id number] Specimen Comment: Source.............Cervix;Endocervix Specimen Comment: Dates / Results....RECENTLY STOPPED NURSING Specimen Comment: No. of containers..01 ThinPrep Vial TYPE CODE TESTS RESULT OUT OF RANGE REFERENCE UNITS LAB L7400.0800 . Normal DIAGN Comment Result Comment: NEGATIVE FOR INTRAEPITHELIAL LESION AND MALIGNANCY. LAB L7400.0900 . Normal ADEQ Comment Result Comment: Satisfactory for evaluation. Endocervical and/or squamous metaplastic cells (endocervical component) are present. LAB L7400.1400 . Normal PERFORM Comment Result Comment: Argelia Chávez, Department Of Sociology Chair (ASCP) LAB L7400.2575 . Normal TEST METHOD Comment Result Comment: This liquid based ThinPrep(R) pap test was screened with the use of an image guided system. LAB L7400.2600 . Normal . COMM LAB L7400.2700 . Normal PAPSMR Comment Result Comment: The Pap smear is a screening test designed to aid in the detection of premalignant and malignant conditions of the uterine cervix. It is not a diagnostic procedure and should not be used as the sole means of detecting cervical cancer. Both false-positive and false-negative reports do occur. LAB L7400.2800 . Normal HPV RFLX Comment Result Comment: The HPV DNA reflex criteria were not met with this specimen result therefore, no HPV testing was performed. Performed at: - [facility] [id number] [address] Light: Kamala Chisholm MD, Phone: [phone] Performed By: #### L7400.0350 #### [facility] (refer to report for specific site) refer to report for address and phone number HCG TITER QUANT., Collected: 01/30/2018 Status: F Source: [place] SERUM 8:58 AM [facility] REPOSITORY TYPE CODE TESTS RESULT OUT OF RANGE REFERENCE UNITS LAB L700.8000 <9 non-preg mIU/mL Normal HCG 2 QUANT. Performed By: #### L700.8000 #### [facility] [address] [place], [address] CBC-COMPLETE BLOOD CNT Collected: 01/02/2018 Status: F Source: [place] NO DIFF 9:20 AM [facility] REPOSITORY TYPE CODE TESTS RESULT OUT OF RANGE REFERENCE UNITS LAB L100.1000 4.4-11.0 K/mm3 High WBC 11.4 LAB L100.1200 4.2-5.4 M/mm3 Low RBC 2.42 LAB L100.1300 12.0-15.0 g/dl Low HGB 7.5 LAB L100.1400 37-47 % Low HCT 23.0 LAB L100.1500 81-99 fL Normal MCV 95.0 LAB L100.1600 27.0-32.0 pg Normal MCH 31.0 LAB L100.1700 32-36 g/gl Normal MCHC 32.6 LAB L100.1810 11.6-14.6 % Normal RDW CV 13.6 LAB L100.1820 35.1-43.9 fl High RDW SD 47.1 LAB L100.1900 150-450 K/mm3 Normal PLT 178 LAB L100.2000 6.2-12.0 fl Normal MPV 9.1 Performed By: #### L100.0500 #### [facility] [address] [place], [address] DISCHARGE INSTRUCTION Observed: 12/29/2017 Status: F Source: [place] 8:27 AM [facility] REPOSITORY [facility] Medical Records Department [facility] [place] [address] Instructions for Home/Discharge Instructions 12/27/17 1104 MR#: [id number] Acct: [id number] Name: VIRGIL HERNANDEZ Rep #: [id number] : 1995 22 From: Wellington Bragg MD PCP: Care Physician, No Primary Status: ADM IN ADDENDUM by Shira Evangelista MD on 12/29/17 at 0827 Please also take iron supplement, Ferrous sulfate 325mg - 1 tab by mouth twice daily - a prescription was sent in to your pharmacy already. Date Shira Evangelista MD cc: No Primary Care Physician * Signed Discharge Diet: No Restrictions Discharge Activity: Return to Normal Activity, May Not Drive, May not drive while taking narcotic pain medications., May Shower Return to work on:: 02/26/18 May shower in (days): 0 May resume sexual activity in: 4-6 weeks Call your doctor if your incision/area has: Sudden Increased Bleeding, Increased Pain/ Swelling, Increased Redness, Foul Smelling Discharge, Swelling at the incision site Call your doctor if you observe: Fever of 101 or Higher, Inability to urinate, Inability to have a bowel movement, Using more than one pad per hour, Shortness of breath, Chest pain, Calf discomfort, Uncontrolled pain Remove Dressing in (days):: 3 Cleanse incision/area with: Soap AND Water Additional Instructions: If you experience any of the following, contact your healthcare provider. * Bleeding that soaks a pad every hour for 2 hours * Fever 100.4 or higher * Unrelieved incision or abdominal pain * Swelling, redness, discharge or bleeding from your incision or episiotomy site * Your incision begins to separate * Problems urinating (including inability to urinate or burning while urinating). * Visual changes * Severe headache * Flu-like symptoms * Pain or redness in one of both of your breasts * Pain, warmth, tenderness or swelling in your legs, especially the calf area * Frequent nausea and vomiting * Symptoms of depression or anxiety If you experience any of the following, call 911 or go to the nearest Emergency Room. * Chest pain * Problems breathing * Seizure activity * Partial or complete paralysis of a body part, slurred speech, weakness or drooping of the face, or a sudden inability to walk or hold your balance Allergies/Adverse Reactions: Allergies No Known Allergies Allergy (Verified 12/10/17 14:21) Medications to take at Discharge Vits [Prenatabs FA ] 1 tablet PO DAILY 06/10/15 Docusate Sodium [Colace] 100 mg PO BID PRN PRN #60 capsule 07/08/15 proMETHazine tablet [Phenergan tablet] 25 mg PO PRN PRN 12/10/17 Ibuprofen 600 mg PO 4X/DAY #30 tab 12/27/17 Oxycodone [Oxyir] 5 mg PO Q4H PRN PRN 7 Days #28 tab 12/27/17 The following prescriptions were given: Oxycodone [Oxyir] 5 mg PO Q4H PRN PRN 7 Days #28 tab PRN Reason: Mod-Severe Pain (4-10/10) Ibuprofen 600 mg PO 4X/DAY #30 tab Follow-Up: Call to make an appointment with your doctor for an incision check in 1-2 weeks. You will also need a 6 week post- follow up appointment. Test results from this visit will be discussed in further detail at your follow-up appointment, if applicable. Please Follow Up With: Wellington Bragg MD When: one week Primary Care Physician: Care Physician,No Primary [Primary Care Provider] - Proposed Discharge Date: 12/30/17 12/27/17 1106 <Electronically signed by Wellington Bragg MD> Date Wellington Bragg MD CC: No Primary Care Physician CBC-COMPLETE BLOOD CNT Collected: 12/29/2017 Status: F Source: [place] NO DIFF 5:10 AM [facility] REPOSITORY TYPE CODE TESTS RESULT OUT OF RANGE REFERENCE UNITS LAB L100.1000 4.4-11.0 K/mm3 Normal WBC 9.5 LAB L100.1200 4.2-5.4 M/mm3 Low RBC 2.41 LAB L100.1300 12.0-15.0 g/dl Low HGB 7.5 LAB L100.1400 37-47 % Low HCT 23.0 LAB L100.1500 81-99 fL Normal MCV 95.4 LAB L100.1600 27.0-32.0 pg Normal MCH 31.1 LAB L100.1700 32-36 g/gl Normal MCHC 32.6 LAB L100.1810 11.6-14.6 % Normal RDW CV 13.8 LAB L100.1820 35.1-43.9 fl High RDW SD 48.3 LAB L100.1900 150-450 K/mm3 Low PLT 128 LAB L100.2000 6.2-12.0 fl Normal MPV 10.7 Performed By: #### L100.0500 #### [facility] [address] [place], [place], [address] CBC-COMPLETE BLOOD CNT Collected: 12/28/2017 Status: F Source: [place] NO DIFF 5:55 AM [facility] REPOSITORY Order Comment: Comments: Day #1 Reason for Laboratory Test TYPE CODE TESTS RESULT OUT OF RANGE REFERENCE UNITS LAB L100.1000 4.4-11.0 K/mm3 High WBC 13.6 LAB L100.1200 4.2-5.4 M/mm3 Low RBC 2.63 LAB L100.1300 12.0-15.0 g/dl Low HGB 8.3 LAB L100.1400 37-47 % Low HCT 25.3 LAB L100.1500 81-99 fL Normal MCV 96.2 LAB L100.1600 27.0-32.0 pg Normal MCH 31.6 LAB L100.1700 32-36 g/gl Normal MCHC 32.8 LAB L100.1810 11.6-14.6 % Normal RDW CV 13.4 LAB L100.1820 35.1-43.9 fl Normal RDW SD 43.9 LAB L100.1900 150-450 K/mm3 Low PLT 124 LAB L100.2000 6.2-12.0 fl Normal MPV 10.7 Performed By: #### L100.0500 #### [facility] [address] [place], [place], [address] CBC-COMPLETE BLOOD CNT Collected: 12/27/2017 Status: F Source: [place] NO DIFF 6:30 PM [facility] REPOSITORY TYPE CODE TESTS RESULT OUT OF RANGE REFERENCE UNITS LAB L100.1000 4.4-11.0 K/mm3 High WBC 18.2 LAB L100.1200 4.2-5.4 M/mm3 Low RBC 3.31 LAB L100.1300 12.0-15.0 g/dl Low HGB 10.1 LAB L100.1400 37-47 % Low HCT 31.2 LAB L100.1500 81-99 fL Normal MCV 94.3 LAB L100.1600 27.0-32.0 pg Normal MCH 30.5 LAB L100.1700 32-36 g/gl Normal MCHC 32.4 LAB L100.1810 11.6-14.6 % Normal RDW CV 13.3 LAB L100.1820 35.1-43.9 fl High RDW SD 45.2 LAB L100.1900 150-450 K/mm3 Low PLT 140 LAB L100.2000 6.2-12.0 fl Normal MPV 10.8 Performed By: #### L100.0500 #### [facility] [place], [address] CBC W/DIFF, AUTOMATED Collected: 12/27/2017 Status: F Source: MAL[place] 4:00 PM [facility] REPOSITORY TYPE CODE TESTS RESULT OUT OF RANGE REFERENCE UNITS LAB L100.1000 4.4-11.0 K/mm3 High WBC 19.4 LAB L100.1200 4.2-5.4 M/mm3 Low RBC 3.46 LAB L100.1300 12.0-15.0 g/dl Low HGB 10.7 LAB L100.1400 37-47 % Low HCT 33.2 LAB L100.1500 81-99 fL Normal MCV 96.0 LAB L100.1600 27.0-32.0 pg Normal MCH 30.9 LAB L100.1700 32-36 g/gl Normal MCHC 32.2 LAB L100.1810 11.6-14.6 % Normal RDW CV 13.3 LAB L100.1820 35.1-43.9 fl High RDW SD 46.1 LAB L100.1900 150-450 K/mm3 Normal PLT 162 LAB L100.2000 6.2-12.0 fl Normal MPV 11.3 LAB L100.2100 47-70 % High NEUT% 78.3 LAB L100.2200 19-41 % Low LY% 16.0 LAB L100.2300 0-10 % Normal MONO% 5.0 LAB L100.2400 0-5 % Normal EO% 0.2 LAB L100.2500 0-1 % Normal BASO% 0.2 LAB L100.2550 0.0-0.9 % Normal IM GRAN % 0.300 Result Comment: IG% - Immature Granulocytes (promyelocytes, myelocytes and metamyelocytes) > 1% indicates that a LEFT SHIFT is Present. LAB L100.2620 2.0-7.7 X10 3/uL High Absolute Neut 15.2 LAB L100.2720 0.83-4.51 X10 3/ul Normal Absolute Lymph 3.11 Performed By: #### L100.0100 #### [facility] [address] [place], [address] PROTHROMBIN TIME W/INR Collected: 12/27/2017 Status: F Source: MALONE 4:00 PM [facility] REPOSITORY TYPE CODE TESTS RESULT OUT OF RANGE REFERENCE UNITS LAB L300.4150 11.7-14.9 SECONDS Normal PROTIME 13.0 LAB L300.4200 Normal INR 1.0 Performed By: #### L300.3900, L300.4310, L300.4700 #### [facility] [address] [facility] [place], [address] PARTIAL THROMBOPLAST Collected: 12/27/2017 Status: F Source: MALONE TIME 4:00 PM [facility] REPOSITORY TYPE CODE TESTS RESULT OUT OF REFERENCE UNITS RANGE LAB L300.4310 24.1-36.2 Seconds Low PTT 23.4 Performed By: #### L300.3900, L300.4310, L300.4700 #### [facility] [address] [facility] [place], [address] FIBRINOGEN Collected: 12/27/2017 Status: F Source: MAL[place] 4:00 PM [facility] REPOSITORY TYPE CODE TESTS RESULT OUT OF RANGE REFERENCE UNITS LAB L300.4700 203-444 mg/dl High FIB 447 Performed By: #### L300.3900, L300.4310, L300.4700 #### [facility] [address] [place], [address] OPERATIVE REPORT Observed: 12/27/2017 Status: F Source: MAL[place] 1:11 PM [facility] REPOSITORY [facility] Medical Records Department [address] [place] [address] Operative Report 12/27/17 1106 MR#: [id number] Acct: [id number] Name: VIRGIL HERNANDEZ Rep #: [id number] : 1995 22 From: Wellington Bragg MD PCP: Care Physician, No Primary Status: ADM IN Y Location: VT983-2 Problem List (1) Previous section complicating Status: Chronic Report of Operation Date of Procedure: 12/27/17 Pre-Operative Diagnosis: Previous Section Requesting Repeat Post-Operative Diagnosis: Same Surgery/Procedure Performed:: Repeat Low Transverse Section Description of Surgical Findings:: Live male in vertex presentation. Amniotic fluid clear. weight 40nv1jj. Apgars 8/9. Lower uterine segment extremely thin. Otherwise normal appearing uterus. Ovaries appear normal. No significant pelvic or abdominal adhesions noted. car supervisor: Khushbu Saenz Type of Anesthesia:: Spinal Anesthesiologist: Ethan Fry Special Medications: none Specimen's removed: none Drains: Tay Estimated Blood Loss (mL): 800cc Fluids Replaced: 1500cc LR Description of Procedure: Virgil was taken to the OR with IV running. She was given 2 grams of Ancef intravenously prior to the surgery for surgical prophylaxis. SCDs were in place and operational throughout the case. Spinal anesthesia was then introduced without complication. A tay catheter was then placed. She was then prepped and draped in the lithotomy position with a leftward tilt. Once anesthesia was deemed adequate a Pfannesteil skin incision was made through the previous scar. The underlying subcutaneous tissue was dissected down to the level of fascia using blunt and sharp dissection. The fascia was then incised horizontally in the midline and this incision was extended bilaterally with the Lewis scissors. The upper portion of the fascial defect was grasped with two Natali clamps, elevated and the rectus muscles dissected off with blunt and sharp dissection. In a similar fashion the rectus muscles were dissected off the lower fascial defect. The rectus muscles were then in the midline, the peritoneum identified and entered sharply. The peritoneal defect was then enlarged using blunt retraction. A bladder blade was then placed. The vesicouterine peritoneum was then identified and entered sharply. A bladder flap was created. The bladder blade was replaced. The lower uterine segment was then incised in a transverse fashion. Once the cavity was entered the defect was enlarged using blunt lateral and superior traction. The bladder blade was removed and the baby's head was delivered atraumatically. The body was then delivered. The mouth was suctioned with a bulb suction. Delayed cord clamping was employed. The cord was then clamped and cut. The baby was then handed to the waiting nursery nurse for evaluation. The placenta was then delivered manually. The cavity was cleared of all clot and membranes. The uterus was then exteriorized. The bladder blade replaced. The uterine incision was then closed in two layers with #1 Vicryl suture. Hemostasis was excellent. The posterior cul de sac was then cleared of all clot and fluid. The uterus was then returned to the abdomen. The gutters were cleared of all clot and fluid. The uterine incision was reinspected and found to be hemostatic. The peritoneum was then closed with 2-0 Vicryl. The rectus muscles were reapproximated with 0-Vicryl suture. The fascia was closed with a running stitch of #1 Stratofix suture. The subcuticular tissue was closed with 2-0 Vicryl. The skin was closed with a subcuticular stitch of 4-0 Monocryl suture. Sponge, lap, needle, and instrument counts were correct. She was taken to the recovery room in stable condition. Grafts/Implants Used: none - Complications none - Admit VTE Documentation VTE Present on Admission: No VTE Mechan Device Prophylaxis: SCD's VTE Pharm Prophylaxis ordered?: No 12/27/17 1311 <Electronically signed by Wellington Bragg MD> Date Wellington Bragg MD CC: No Primary Care Physician; Wellington Bragg MD Signed CBC W/DIFF, AUTOMATED Collected: 12/27/2017 Status: F Source: [place] 10:30 AM [facility] REPOSITORY TYPE CODE TESTS RESULT OUT OF RANGE REFERENCE UNITS LAB L100.1000 4.4-11.0 K/mm3 Normal WBC 9.4 LAB L100.1200 4.2-5.4 M/mm3 Low RBC 4.08 LAB L100.1300 12.0-15.0 g/dl Normal HGB 13.0 LAB L100.1400 37-47 % Normal HCT 38.3 LAB L100.1500 81-99 fL Normal MCV 93.9 LAB L100.1600 27.0-32.0 pg Normal MCH 31.9 LAB L100.1700 32-36 g/gl Normal MCHC 33.9 LAB L100.1810 11.6-14.6 % Normal RDW CV 13.0 LAB L100.1820 35.1-43.9 fl Normal RDW SD 43.2 LAB L100.1900 150-450 K/mm3 Low PLT 106 LAB L100.2000 6.2-12.0 fl Normal MPV 11.4 LAB L100.2100 47-70 % High NEUT% 73.4 LAB L100.2200 19-41 % Low LY% 18.8 LAB L100.2300 0-10 % Normal MONO% 6.5 LAB L100.2400 0-5 % Normal EO% 0.6 LAB L100.2500 0-1 % Normal BASO% 0.2 LAB L100.2550 0.0-0.9 % Normal IM GRAN % 0.500 Result Comment: IG% - Immature Granulocytes (promyelocytes, myelocytes and metamyelocytes) > 1% indicates that a LEFT SHIFT is Present. LAB L100.2620 2.0-7.7 X10 3/uL Normal Absolute Neut 6.9 LAB L100.2720 0.83-4.51 X10 3/ul Normal Absolute Lymph 1.77 Performed By: #### L100.0100 #### [facility] [address] [place] [address], [address] PROTHROMBIN TIME W/INR Collected: 12/27/2017 Status: F Source: [place] 10:30 AM [facility] REPOSITORY TYPE CODE TESTS RESULT OUT OF RANGE REFERENCE UNITS LAB L300.4150 11.7-14.9 SECONDS Normal PROTIME 12.3 LAB L300.4200 Normal INR 0.9 Performed By: #### L300.3900, L300.4310 #### [facility] [address] [place], [address] PARTIAL THROMBOPLAST Collected: 12/27/2017 Status: F Source: MAL[place] TIME 10:30 AM [facility] REPOSITORY TYPE CODE TESTS RESULT OUT OF RANGE REFERENCE UNITS LAB L300.4310 24.1-36.2 Seconds Normal PTT 25.1 Performed By: #### L300.3900, L300.4310 #### [facility] [address] [facility] [address] [place], [address] TYPE AND SCREEN Collected: 12/27/2017 Status: F Source: [place] 10:30 AM [facility] REPOSITORY Order Comment: Reason for Type AND Screen/Red Cells: SURGERY Type of Surgery: TYPE CODE TESTS RESULT OUT OF RANGE REFERENCE UNITS LAB B10.0800 O Normal BLOOD TYPE GEL POSITIVE LAB B100.4000 Normal Antibody NEGATIVE Screen Performed By: #### B101.7450 #### [facility] [address] [facility] [place], [address] CBC-COMPLETE BLOOD CNT Collected: 12/05/2017 Status: F Source: [place] NO DIFF 9:26 AM [facility] REPOSITORY TYPE CODE TESTS RESULT OUT OF RANGE REFERENCE UNITS LAB L100.1000 4.4-11.0 K/mm3 High WBC 11.4 LAB L100.1200 4.2-5.4 M/mm3 Normal RBC 4.21 LAB L100.1300 12.0-15.0 g/dl Normal HGB 13.1 LAB L100.1400 37-47 % Normal HCT 39.6 LAB L100.1500 81-99 fL Normal MCV 94.1 LAB L100.1600 27.0-32.0 pg Normal MCH 31.1 LAB L100.1700 32-36 g/gl Normal MCHC 33.1 LAB L100.1810 11.6-14.6 % Normal RDW CV 13.2 LAB L100.1820 35.1-43.9 fl High RDW SD 45.0 LAB L100.1900 150-450 K/mm3 Low PLT 120 LAB L100.2000 6.2-12.0 fl Normal MPV 11.5 Performed By: #### L100.0500 #### [facility] [address] [facility] [address] [place], [place], [address] GROUP B STREP DNA Collected: 12/05/2017 Status: F Source: BG BY PCR 9:15 AM [facility] REPOSITORY Order Comment: Source: Vaginal-Rectal TYPE CODE TESTS RESULT OUT OF RANGE REFERENCE UNITS LAB L8200.0100 Negative Normal GBS TEST Negative RESULT Performed By: #### L8200.0000 #### [facility] [address] [place], [place], [address] Observed: 12/05/2017 Status: F Source: BG CULTURE, GROUP B 12:00 AM [facility] STREPTOCOCCUS REPOSITORY ELSA Culture Group B Beta Streptococcus is not isolated. Performed By: #### M100.1800 #### [facility] [address] [place], [place], [id number] URINE DRUG SCREEN Collected: 11/07/2017 Status: F Source: BG (VISTA) 9:46 AM [facility] REPOSITORY Order Comment: List of Drugs Taken or Suspected? UNK TYPE CODE TESTS RESULT OUT OF RANGE REFERENCE UNITS LAB L505.0075 TO BE Normal CONFIRMED Result Comment: CONFIRMATORY TESTING FOR ALL POSITIVE URINE DRUG SCREEN RESULTS WILL ONLY BE SENT OUT UPON PHYSICIAN ORDER. VISTA Urine Drug Screen methods provide only preliminary analytical test results. A more specific alternate chemical method must be used in order to obtain a confirmed analytical result. Gas chromatography/mass spectrometery (GC/MS) is the preferred confirmatory method. Clinical consideration and professional judgement should be applied to any drug of abuse test result, particularly when preliminary positive results are used. URINE TCA TESTING MUST BE ORDERED SEPARATELY. USE TEST MNEMONIC: [facility] LAB L505.5005 VISTA UDS PH 6 Normal LAB L505.5015 <1000 ng/mL AMPHETAMINES Normal NEGATIVE LAB L505.5025 < 200 ng/mL BARBITIURATES Normal NEGATIVE LAB L505.5035 < 200 ng/mL BENZODIAZIPINE Normal NEGATIVE LAB L505.5045 < 300 ng/mL COCAINE Normal NEGATIVE LAB L505.5055 < 500 ng/mL ECSTACY Normal NEGATIVE LAB L505.5065 < 300 ng/mL METHADONE Normal NEGATIVE LAB L505.5075 < 300 ng/mL OPIATES Normal NEGATIVE LAB L505.5085 < 25 ng/mL PCP Normal NEGATIVE LAB L505.5095 < 50 ng/mL THC Normal NEGATIVE Performed By: #### L505.5000 #### [facility] [address] [place], [address] CBC-COMPLETE BLOOD CNT Collected: 11/07/2017 Status: F Source: BG NO DIFF 9:45 AM [facility] REPOSITORY TYPE CODE TESTS RESULT OUT OF RANGE REFERENCE UNITS LAB L100.1000 4.4-11.0 K/mm3 High WBC 11.8 LAB L100.1200 4.2-5.4 M/mm3 Low RBC 3.95 LAB L100.1300 12.0-15.0 g/dl Normal HGB 12.7 LAB L100.1400 37-47 % Normal HCT 37.3 LAB L100.1500 81-99 fL Normal MCV 94.4 LAB L100.1600 27.0-32.0 pg High MCH 32.2 LAB L100.1700 32-36 g/gl Normal MCHC 34.0 LAB L100.1810 11.6-14.6 % Normal RDW CV 12.7 LAB L100.1820 35.1-43.9 fl Normal RDW SD 42.4 LAB L100.1900 150-450 K/mm3 Low PLT 117 LAB L100.2000 6.2-12.0 fl Normal MPV 11.3 Performed By: #### L100.0500 #### [facility] [address] [place], [address] PROGRESS Observed: 10/06/2017 Status: COMPLETED Source: [place] 7:40 PM [facility] REPOSITORY HNO ID: [id number] Author: Stanley Dougherty Service: (none) Author Type: Nurse Practitioner Type: Progress Notes Filed: 10/06/2017 7:55 PM Note Text: Subjective HPI HPI Virgil Ruggiero is a 22 year old female who presents today for CC of rash for 1 year. Has tried nothing. Symptoms are worsened by nothing. Risk factors none, patient is currently . .Patient presents with: Rash No past medical history on file. No past surgical history on file. ALLERGIES Patient has no known allergies. MEDICATIONS 25/iron fum/folic/dha (-1 ORAL) Take 1 tablet by mouth. albuterol HFA (PROAIR HFA) 90 mcg/actuation inhaler Inhale 2 Puffs as instructed every 4 hours as needed. No family history on file. Social History Substance Use Topics - Smoking status: Former Smoker - Smokeless tobacco: Never Used - Alcohol use Not on file Review of Systems Constitutional: Negative for chills and fever. Skin: Positive for itching and rash. Objective Pulse 100, temperature 36.8 ?C (98.2 ?F), temperature source Left Tympanic, resp. rate 18, weight 83.9 kg (185 lb), SpO2 99 %. Physical Exam Constitutional: She is oriented to person, place, and time and well-developed, well-nourished, and in no distress. Non-toxic appearance. She does not have a sickly appearance. No distress. HENT: Head: Normocephalic and atraumatic. Pulmonary/Chest: Effort normal. No accessory muscle usage. No respiratory distress. Neurological: She is alert and oriented to person, place, and time. Skin: She is not diaphoretic. Upper back, chest, neck have light colored circular patches, some coalesced. No erythema, edema, exudates, or other definable lesions. ASSESSMENT/PLAN: 1. Tinea versicolor - ICD9: 111.0, ICD10: B36.0 -watch and wait for now, patient . Can check with phlebotomy technician, but may be safer to treat after of child. Prescription instructions reviewed with patient as applicable. Patient advised if symptoms do not improve or if symptoms worsen sooner, to contact the office for further evaluation by their primary care physician. Potential red flag symptoms discussed with the patient. Reviewed appropriate action plan to take if red flag symptoms occur. Patient agreeable to treatment plan. Stanley Dougherty APRN.CNP CNOV Observed: 10/06/2017 Status: COMPLETED Source: [place] 7:30 PM [facility] REPOSITORY Office Visit (WSTR) VIRGIL RUGGIERO ([id number]) 1995 F Date Time Provider Department 10/06/17 7:30 PM STANLEY DOUGHERTY) [facility] During your visit today, we recorded the following information about you: Temperature Pulse Respiration Weight 98.2 degrees 100/minute 18/minute 83.9 kg Stanley Dougherty APRN.CNP 10/06/2017 7:55 PM Signed Subjective HPI HPI Virgil Ruggiero is a 22 year old female who presents today for CC of rash for 1 year. Has tried nothing. Symptoms are worsened by nothing. Risk factors none, patient is currently . .Patient presents with: Rash No past medical history on file. No past surgical history on file. ALLERGIES Patient has no known allergies. MEDICATIONS 25/iron fum/folic/dha (-1 ORAL) Take 1 tablet by mouth. albuterol HFA (PROAIR HFA) 90 mcg/actuation inhaler Inhale 2 Puffs as instructed every 4 hours as needed. No family history on file. Social History Substance Use Topics - Smoking status: Former Smoker - Smokeless tobacco: Never Used - Alcohol use Not on file Review of Systems Constitutional: Negative for chills and fever. Skin: Positive for itching and rash. Objective Pulse 100, temperature 36.8 ?C (98.2 ?F), temperature source Left Tympanic, resp. rate 18, weight 83.9 kg (185 lb), SpO2 99 %. Physical Exam Constitutional: She is oriented to person, place, and time and well-developed, well-nourished, and in no distress. Non-toxic appearance. She does not have a sickly appearance. No distress. HENT: Head: Normocephalic and atraumatic. Pulmonary/Chest: Effort normal. No accessory muscle usage. No respiratory distress. Neurological: She is alert and oriented to person, place, and time. Skin: She is not diaphoretic. Upper back, chest, neck have light colored circular patches, some coalesced. No erythema, edema, exudates, or other definable lesions. ASSESSMENT/PLAN: 1. Tinea versicolor - ICD9: 111.0, ICD10: B36.0 -watch and wait for now, patient . Can check with phlebotomy technician, but may be safer to treat after of child. Prescription instructions reviewed with patient as applicable. Patient advised if symptoms do not improve or if symptoms worsen sooner, to contact the office for further evaluation by their primary care physician. Potential red flag symptoms discussed with the patient. Reviewed appropriate action plan to take if red flag symptoms occur. Patient agreeable to treatment plan. Stanley Dougherty APRN.STABLE HELPER Referring Provider: SELF [200] Allergies As of Date: 10/06/2017 (No Known Allergies) Date Reviewed: 10/06/2017 Reviewed by: Stanley (Plastic Duplicator) - Fully Assessed Reason for Visit: Rash [1087] Primary Visit Diagnosis:Tinea versicolor [B36.0] Prescriptions as of 10/06/2017 Sig: -1 ORAL Take 1 tablet by mouth. ALBUTEROL SULFATE HFA 90 MCG/* Inhale 2 Puffs as instructed * Problem List As Of Date: 10/06/2017 (None) Encounter Status:Closed by STANLEY DOUGHERTY CNP on 10/06/17 CBC-COMPLETE BLOOD CNT Collected: 10/03/2017 Status: F Source: BG NO DIFF 8:51 AM [facility] REPOSITORY TYPE CODE TESTS RESULT OUT OF RANGE REFERENCE UNITS LAB L100.1000 4.4-11.0 K/mm3 Normal WBC 8.6 LAB L100.1200 4.2-5.4 M/mm3 Low RBC 3.87 LAB L100.1300 12.0-15.0 g/dl Normal HGB 12.1 LAB L100.1400 37-47 % Low HCT 36.1 LAB L100.1500 81-99 fL Normal MCV 93.3 LAB L100.1600 27.0-32.0 pg Normal MCH 31.3 LAB L100.1700 32-36 g/gl Normal MCHC 33.5 LAB L100.1810 11.6-14.6 % Normal RDW CV 13.1 LAB L100.1820 35.1-43.9 fl High RDW SD 44.3 LAB L100.1900 150-450 K/mm3 Low PLT 122 LAB L100.2000 6.2-12.0 fl Normal MPV 10.7 Performed By: #### L100.0500 #### [facility] [address] [place], [place], [address] GLUCOSE CHALLENGE GEST Collected: 10/03/2017 Status: F Source: BG 1H 50G 8:51 AM [facility] REPOSITORY TYPE CODE TESTS RESULT OUT OF RANGE REFERENCE UNITS LAB L501.0250 70-140 mg/dL Normal GLU GEST 76 50g 1H Performed By: #### L501.0250 #### [facility] [address] [place], [address] URINE DRUG SCREEN Collected: 06/21/2017 Status: F Source: BG (JOHANTA) 4:18 PM [facility] REPOSITORY Order Comment: List of Drugs Taken or Suspected? UNK TYPE CODE TESTS RESULT OUT OF RANGE REFERENCE UNITS LAB L505.0075 TO BE Normal CONFIRMED Result Comment: CONFIRMATORY TESTING FOR ALL POSITIVE URINE DRUG SCREEN RESULTS WILL ONLY BE SENT OUT UPON PHYSICIAN ORDER. VISTA Urine Drug Screen methods provide only preliminary analytical test results. A more specific alternate chemical method must be used in order to obtain a confirmed analytical result. Gas chromatography/mass spectrometery (GC/MS) is the preferred confirmatory method. Clinical consideration and professional judgement should be applied to any drug of abuse test result, particularly when preliminary positive results are used. URINE TCA TESTING MUST BE ORDERED SEPARATELY. USE TEST MNEMONIC: [facility] LAB L505.5005 VISTA UDS PH 6 Normal LAB L505.5015 <1000 ng/mL AMPHETAMINES Normal NEGATIVE LAB L505.5025 < 200 ng/mL BARBITIURATES Normal NEGATIVE LAB L505.5035 < 200 ng/mL BENZODIAZIPINE Normal NEGATIVE LAB L505.5045 < 300 ng/mL COCAINE Normal NEGATIVE LAB L505.5055 < 500 ng/mL ECSTACY Normal NEGATIVE LAB L505.5065 < 300 ng/mL METHADONE Normal NEGATIVE LAB L505.5075 < 300 ng/mL OPIATES Normal NEGATIVE LAB L505.5085 < 25 ng/mL PCP Normal NEGATIVE LAB L505.5095 < 50 ng/mL THC Normal NEGATIVE Performed By: #### L505.5000, L505.6240 #### [facility] [address] [place], [address] NICOTINE URINE DRUG Collected: 06/21/2017 Status: F Source: BG SCREEN 4:18 PM [facility] REPOSITORY Order Comment: List of Drugs Taken or Suspected? UNK TYPE CODE TESTS RESULT OUT OF RANGE REFERENCE UNITS LAB L505.6250 TO BE Normal CONFIRMED Result Comment: CONFIRMATORY TESTING FOR ALL POSITIVE URINE DRUG SCREEN RESULTS WILL ONLY BE SENT OUT UPON PHYSICIAN ORDER. The results of Urine Drug Screen methods provide only preliminary analytical test results. A more specific alternate chemical method must be used in order to obtain a confirmed analytical result. Gas chromatography/mass spectrometery (GC/MS) is the preferred confirmatory method. Clinical consideration and professional judgement should be applied to any drug of abuse test result, particularly when preliminary positive results are used. LAB L505.6270 <200 ng/mL Normal COT DRG Negative SCREEN Result Comment: Cotinine is the first-stage metabolite of Nicotine. Performed By: #### L505.5000, L505.6240 #### [facility] [place], [address] CBC W/DIFF, AUTOMATED Collected: 06/21/2017 Status: F Source: [place] 4:18 PM [facility] REPOSITORY TYPE CODE TESTS RESULT OUT OF RANGE REFERENCE UNITS LAB L100.1000 4.4-11.0 K/mm3 Normal WBC 10.1 LAB L100.1200 4.2-5.4 M/mm3 Normal RBC 4.22 LAB L100.1300 12.0-15.0 g/dl Normal HGB 13.1 LAB L100.1400 37-47 % Normal HCT 38.9 LAB L100.1500 81-99 fL Normal MCV 92.2 LAB L100.1600 27.0-32.0 pg Normal MCH 31.0 LAB L100.1700 32-36 g/gl Normal MCHC 33.7 LAB L100.1810 11.6-14.6 % Normal RDW CV 13.3 LAB L100.1820 35.1-43.9 fl Normal RDW SD 43.8 LAB L100.1900 150-450 K/mm3 Normal PLT 169 LAB L100.2000 6.2-12.0 fl Normal MPV 11.2 LAB L100.2100 47-70 % Normal NEUT% 68.0 LAB L100.2200 19-41 % Normal LY% 23.5 LAB L100.2300 0-10 % Normal MONO% 5.8 LAB L100.2400 0-5 % Normal EO% 2.1 LAB L100.2500 0-1 % Normal BASO% 0.5 LAB L100.2550 0.0-0.9 % Normal IM GRAN % 0.100 Result Comment: IG% - Immature Granulocytes (promyelocytes, myelocytes and metamyelocytes) > 1% indicates that a LEFT SHIFT is Present. LAB L100.2620 2.0-7.7 X10 3/uL Normal Absolute Neut 6.8 LAB L100.2720 0.83-4.51 X10 3/ul Normal Absolute Lymph 2.36 Performed By: #### L100.0100 #### [facility] [address] [place], [place], [address] URINALYSIS, ROUTINE Collected: 06/21/2017 Status: F Source: BG (DIPSTICK) 4:18 PM [facility] REPOSITORY Order Comment: How was Urine Obtained? Urine, Random TYPE CODE TESTS RESULT OUT OF RANGE REFERENCE UNITS LAB L400.3000 Yellow COLOR Normal Yellow LAB L400.3050 Clear Normal CLARITY Clear LAB L400.3200 Normal mg/dl Normal GLUCOSE, UR Normal LAB L400.3300 Negative mg/dL Normal BILIRUBIN URINE Negative LAB L400.3400 Negative mg/dl Normal KETONE UR Negative LAB L400.3465 1.002-1.030 Normal SP.GR. DIPSTX 1.010 LAB L400.3550 5.0 - 8.0 pH UR Normal 6.5 LAB L400.3600 Negative mg/dl PROT Normal DIPSTX Negative LAB L400.3700 Normal mg/dl Normal UROBILI Normal LAB L400.3750 Negative Normal NITRITE UR Negative LAB L400.3780 Negative /ul Normal OCCULT BLOOD-UR Negative LAB L400.3800 Negative /ul LEUK Normal ESTERASE Negative Performed By: #### L400.2011 #### [facility] [place], [place], [id number] T AND S-NO Collected: 06/21/2017 Status: F Source: BG CHARGE W/PNP 4:18 PM [facility] REPOSITORY Order Comment: Reason for Type AND Screen/Red Cells: Surgery? N TYPE CODE TESTS RESULT OUT OF RANGE REFERENCE UNITS LAB B10.0800 O Normal BLOOD POSITIVE TYPE GEL LAB B100.4050 Normal Ab SCREEN NEGATIVE GEL Performed By: #### B100.7550 #### [facility] [address] [place], [place], [id number] THYROID STIM HORMONE Collected: 06/21/2017 Status: F Source: BG (TSH) 4:18 PM [facility] REPOSITORY TYPE CODE TESTS RESULT OUT OF RANGE REFERENCE UNITS LAB L501.9520 0.358-3.74 uIU/mL Normal TSH 1.68 Performed By: #### L501.9520 #### [facility] [address] [facility] [address] [place], [place], [address] RUBELLA IGG Collected: 06/21/2017 Status: F Source: [place] 4:18 PM [facility] REPOSITORY TYPE CODE TESTS RESULT OUT OF RANGE REFERENCE UNITS LAB L509.4000 IU/mL Normal Rubella IgG 72.4 Result Comment: Antibody results Interpretation of Immune Status < 5 IU/ml Presumed Non-immune 5 - < 10 IU/ml Equivocal > or = 10 IU/ml Presumed Immune Performed By: #### L509.4000, L3890.6005 #### [facility] [place], [place], [id number] HIV - [facility] Collected: 06/21/2017 Status: F Source: [place] 4:18 PM [facility] REPOSITORY TYPE CODE TESTS RESULT OUT OF RANGE REFERENCE UNITS LAB L3890.6005 Nonreactive Normal HIV - [facility] Non-Reactive Performed By: #### L509.4000, L3890.6005 #### [facility] [place], [place], [id number] HEPATITIS B SURFACE Collected: 06/21/2017 Status: F Source: [place] AG 4:18 PM [facility] REPOSITORY TYPE CODE TESTS RESULT OUT OF RANGE REFERENCE UNITS LAB L3100.0400 Negative Normal HB Negative SURF AG Result Comment: Performed at: - [facility] [id number] [address] Light: Cale Kwok PhD, Phone: [phone] Performed By: #### L3100.0390, L3100.0625 #### [facility] (refer to report for specific site) refer to report for address and phone number HEPATITIS C ANTIBODIES Collected: 06/21/2017 Status: F Source: [place] 4:18 PM [facility] REPOSITORY TYPE CODE TESTS RESULT OUT OF RANGE REFERENCE UNITS LAB L3100.0650 0.0-0.9 s/co ratio Normal HEP C AB 0.1 Result Comment: Negative: < 0.8 Indeterminate: 0.8 - 0.9 Positive: > 0.9 The CDC recommends that a positive HCV antibody result be followed up with a HCV Nucleic Acid Amplification test (178939). Performed By: #### L3100.0390, L3100.0625 #### [facility] (refer to report for specific site) refer to report for address and phone number RPR Collected: 06/21/2017 Status: F Source: [place] 4:18 PM [facility] REPOSITORY TYPE CODE TESTS RESULT OUT OF REFERENCE UNITS RANGE LAB L700.5100 NONREACTIVE Normal RPR NONREACTIVE Performed By: #### L700.5100 #### [facility] [address] [place], [address] CT/NG [facility] BY PCR Collected: 06/08/2017 Status: F Source: [place] 10:55 AM [facility] REPOSITORY TYPE CODE TESTS RESULT OUT OF RANGE REFERENCE UNITS LAB L8200.2100 Negative Normal Chlam Negative Trac PCR LAB L8200.2200 Negative Normal NG by Negative PCR Performed By: #### L8200.2000 #### [facility] [address] [place], [address] PROGRESS Observed: 05/24/2017 Status: COMPLETED Source: [place] 8:07 PM [facility] REPOSITORY HNO ID: [id number] Author: Nba Cano Service: (none) Author Type: Nurse Practitioner Type: Progress Notes Filed: 05/27/2017 8:16 AM Note Text: HPI Patient is a reliable 22 year old female here today with a 8 day history of nasal congestion, cough, and sinus pressure. She is 6 weeks . States she has taken Tylenol cough syrup with some relief. Nothing makes it better or worse. No other concerns at this time. ROS Physical Exam CNOV Observed: 05/24/2017 Status: COMPLETED Source: [place] 8:00 PM [facility] REPOSITORY Office Visit (WSTR) VIRGIL HERNANDEZ ([id number]) 1995 F Date Time Provider Department 05/24/17 8:00 PM [facility] During your visit today, we recorded the following information about you: Temperature Pulse Respiration Blood pressure 98.1 degrees 78/minute 16/minute 132/82 Weight 69.4 kg Nba Cano CNP 05/27/2017 8:16 AM Signed HPI Patient is a reliable 22 year old female here today with a 8 day history of nasal congestion, cough, and sinus pressure. She is 6 weeks . States she has taken Tylenol cough syrup with some relief. Nothing makes it better or worse. No other concerns at this time. ROS Physical Exam Referring Provider: SELF [200] Allergies As of Date: 05/24/2017 (No Known Allergies) Date Reviewed: 05/24/2017 Reviewed by: Joy Jeter Ma - Fully Assessed Reason for Visit: Sinus Problem [99] Cmt: sinus pressure, drainage, cough x 8 days-6 weeks Primary Visit Diagnosis:Sinobronchitis [J32.9, J40] Order(s):amoxicillin (AMOXIL) 875 mg tabletTake 1 tablet by mouth twice daily for 10 days.Disp: 20 tabletRfl: 0 albuterol HFA (PROAIR HFA) 90 mcg/actuation inhalerInhale 2 Puffs as instructed every 4 hours as needed.Disp: 1 InhalerRfl: 0 Prescriptions as of 05/24/2017 Sig: AMOXICILLIN 875 MG TABLET Take 1 tablet by mouth twice * ALBUTEROL SULFATE HFA 90 MCG/* Inhale 2 Puffs as instructed * Problem List As Of Date: 05/24/2017 (None) Prescriptions ordered this encounter Disp Refills Start End AMOXICILLIN 875 MG TABLET 20 t* 0 05/24/2017 06/03/2017 Route: ORAL Sig: Take 1 tablet by mouth twice daily for 10 days. ALBUTEROL SULFATE HFA 90 MCG/ACTUATI* 1 In* 0 05/24/2017 Route: INHALATION Sig: Inhale 2 Puffs as instructed every 4 hours as needed. Encounter Status:Closed by NBA CANO CNP on 05/27/17 DISCHARGE INSTRUCTION Observed: 05/18/2017 Status: F Source: [place] 6:49 PM [facility] REPOSITORY [facility] Medical Records Department [address] [place] [address] Discharge Instruction 05/18/17 1848 MR#: [id number] Acct: [id number] Name: VIRGIL HERNANDEZ Rep #: [id number] : 1995 22 From: Sienna Godfrey MD PCP: Nitza Vargas DO Status: REG ER ED Disposition - Plan for ED Patient: Chief Complaint: Vag Bld, Preg Instructions: ED Miscarriage Poss Referrals: Moi Starks DO [NON-STAFF] - Wellington Bragg MD [STAFF PHYSICIAN] - What to do if you have Problems For any increased pain, shortness of breath, bleeding, nausea or vomiting, chest pain, or any unexpected problems, contact your Primary Care Provider. Call [facility] ([phone]) or report to the closest Emergency Room. Call 911 if necessary. 05/18/171848 <Electronically signed by Sienna Godfrey MD> Date Sienna Godfrey MD Cosigner Signature (If Indicated): Date CC: Nitza Vargas DO EMERGENCY DEPARTMENT Observed: 05/18/2017 Status: F Source: [place] SUMMARY 6:48 PM [facility] REPOSITORY [facility] Medical Records Department [address] [place] [address] Emergency Department Summary 05/18/17 1641 MR#: [id number] Acct: [id number] Name: VIRGIL HERNANDEZ Rep #: [id number] : 1995 22 From: Sienna Godfrey MD PCP: Nitza Vargas DO Status: REG ER - ER Visit Summary Date of Service: 05/18/17 Chief Complaint: Vaginal bleeding in History of Present Illness: The patient is a 22 F presenting with vaginal bleeding in . Patient states she had pink tinged discharge when she wiped with toilet paper. She states this is not similar to her period. She has had mild abdominal cramping. She is AB0, she states she had bleeding during the 1st trimester of her last . Denies other complaints. Physical Examination: Vitals are stable. Patient is afebrile. Alert no acute distress. HEENT exam is unremarkable. Lungs are clear and equal bilaterally. Heart is regular rate and rhythm. Abdomen is soft nontender nondistended. No rebound or guarding Pelvic exam: cervix is closed, no blood in the vaginal vault. No adnexal tenderness. Extremities are unremarkable. Skin is warm and dry. Remainder of exam is unremarkable. Emergency Department Course and Treatment: HCG Quant 34527, blood type O+. Ultrasound shows single live intrauterine gestation with estimated gestational age of 6 weeks and 2 days. heart rate 130 bpm. Subcentimeter fluid collection adjacent to the gestational sac, may represent a focal subchorionic hemorrhage or a second smaller gestational sac (no evidence of yolk sac or pole). Short-term follow-up is recommended. Discussed with Dr. Haile Cardoza. Patient will follow-up in the office. Advised follow up with [facility]. Advised return to the ED for worsening complaints. Disposition: Discharge home Impression: Vaginal bleeding in This note was generated with [employer] dictation software. It may contain incorrect words, spelling, and punctuation that were not noted in review of the chart prior to signing ED Disposition - Plan for ED Patient: Chief Complaint: Vag Bld, Preg Referrals: Moi Starks, DO [NON-STAFF] - What to do if you have Problems For any increased pain, shortness of breath, bleeding, nausea or vomiting, chest pain, or any unexpected problems, contact your Primary Care Provider. Call [facility] ([phone]) or report to the closest Emergency Room. Call 911 if necessary. 05/18/17 6918 <Electronically signed by Sienna Godfrey MD> Date Sienna Godfrey MD Cosigner Signature (If Indicated): Date CC: Nitza Vargas DO ABO RH BLOOD TYPE, Collected: 05/18/2017 Status: F Source: BG PATIENT 4:47 PM [facility] REPOSITORY TYPE CODE TESTS RESULT OUT OF RANGE REFERENCE UNITS LAB B10.0800 Test Normal BLOOD not performed TYPE GEL Performed By: #### B10.0010 #### [facility] [address] [place], [address] ABORH BLOOD TYPE, Collected: 05/18/2017 Status: F Source: BG PATIENT 4:47 PM [facility] REPOSITORY TYPE CODE TESTS RESULT OUT OF RANGE REFERENCE UNITS LAB B100.1300 O Normal BLOOD POSITIVE TYPE PT Performed By: #### B100.0000 #### [facility] [address] [place], [address] HCG TITER QUANT., Collected: 05/18/2017 Status: F Source: BG SERUM 4:47 PM [facility] REPOSITORY TYPE CODE TESTS RESULT OUT OF RANGE REFERENCE UNITS LAB L700.8000 <9 non-preg mIU/mL High HCG 27888 QUANT. Performed By: #### L700.8000 #### [facility] [address] [place], [address] TRANSVAGINAL W/PREG US Observed: 05/18/2017 Status: F Source: BG 4:35 PM [facility] REPOSITORY [facility] Imaging Services [address] [place] [address] Transvaginal w/Preg US MR#: [id number] Acct: [id number] Name: VIRGIL HERNANDEZ Rep #: [id number] : 1995 F 22 From: Virginia Child MD PCP: Nitza Vargas DO Status: REG ER Study: Transvaginal w/Preg US Date of Exam: 05/18/17 Exam# [id number] Ordering Dr: Sienna Godfrey MD US OB Transvaginal INDICATION: SPOTTING COMPARISON: None TECHNIQUE: Ultrasonographic grayscale and limited Doppler investigation of the FINDINGS: The uterus measures 9 x 5 x 5 cm and contains a single live intrauterine gestation with crown-rump length of 7 mm, estimating a gestational age of 6 weeks and 2 days. heart rate measures 130 bpm. Normal yolk sac is seen. There is a second subcentimeter fluid collection seen adjacent to the gestational sac, this may represent a small subchorionic focal hemorrhage or a second gestational sac. No yolk sac or a pole in this collection. Short-term follow-up is recommended. The ovaries are unremarkable. Small free fluid is noted in the pelvis. US/Transvaginal w/Preg US IMPRESSION: Single live intrauterine gestation with estimated gestational age of 6 weeks and 2 days. heart rate 130 bpm. Subcentimeter fluid collection adjacent to the gestational sac, may represent a focal subchorionic hemorrhage or a second smaller gestational sac (no evidence of yolk sac or pole). Short-term follow- up is recommended. Small free pelvic fluid. at 1830 Reported and signed by: Virginia Child MD Electronically Signed: Virginia Child MD at 17:28 EST Tel , Service support , CC: Sienna Godfrey MD; Nitza Vargas DO Mixing Tank Operator: Signed ALLERGIES ALLERGIES DATE TYPE / CODE NAME / CODE REACTION SEVERITY SOURCE 12/10/2017 Drug No Known Unknown [facility] Allergy/416 Allergies/Y40556 Hospital 108141(SNOM 0388(RXNORM) Repository ED CT) Drug NO KNOWN [facility] Class/91471 ALLERGIES [facility] 1003(SNOMED Repository CT) ENCOUNTERS ENCOUNTERS ADMIT/DISCHARGE ACCOUNT ADMITTING ENCOUNTER LOCATION SOURCE NUMBER CLASS 04/03/2018 [id number] Ambulatory [facility] ing:LABSPEC Repository 01/30/2018 [id number] [facility] ing:WOBLAB Repository 01/02/2018 [id number] Ambulatory [facility] ing:WOBLAB Repository 12/27/2017/12/30/19 [id number] [facility] [address] ing:WPRoom: Repository VV793Onb: 1 12/24/2017/12/25/19 [id number] Ambulatory [address] ing:WPOUT Repository 12/10/2017/12/11/19 [id number] Ambulatory [address] ing:WPOUTRoom Repository : WP014 12/05/2017 [id number] Ambulatory [facility] ing:WOBLAB Repository 11/07/2017 [id number] Ambulatory [facility] ing:WOBLAB Repository 10/06/2017/10/10/19 [id number] Ambulatory [address] Repository 10/03/2017 [id number] Ambulatory [facility] ing:WOBLAB Repository 06/21/2017 [id number] Ambulatory [facility] ing:WOBLAB Repository 06/08/2017 [id number] Ambulatory [facility] ing:WOBLAB Repository 05/24/2017/05/24/19 [id number] Ambulatory [address] Repository 05/18/2017/05/18/19 [id number] Emergency [address] ing:ED Repository PAYERS PAYERS ENCOUNTER GUARANTOR PAYER SUBSCRIBER SOURCE 04/03/2018 VIRGIL Vazquez Primary Kendell B [place]la[place]ie [id number] [address]LE[address] [facility] Miller[facility] [address], y Number: [id number] County General Hospital [address]Yud: [id number] Repository mya Date:4952-25-09FG () [address], [place] [address]LF: 04/03/2018 Secondary VIRGIL Pederson Insurance:[facility] MILLERDOB: [facility] [id number] Hospital Number: Repository [id number] Date:6610-53-07DS [address] [place] [address]OS: 04/03/2018 Tertiary NOT GIVENUNK Bg Insurance:SELF PAY [facility] Number: Effective Repository Date:2018-04-03 01/30/2018 VIRGIL Vazquez Primary Kendell [id number] DARLEEN Insurance:ANTHEMPolic MillerDOB: Community LNAPT [address], y Number: [id number] [place] [address]Gdh: [id number] Repository mya Date:0989-00-53IA () [address] [place] [address] 25509RY: 01/30/2018 Secondary NOT GIVENUNK [place] Insurance:SELF PAY [facility] Number: Effective Repository Date:2018-01-30 01/02/2018 VIRGIL A Primary Kendell Pederson [id number] DARLEEN Insurance:ANTHEMPolic MillerDOB: Community LNAPT [address], y Number: [id number] [place] [address]Dpq: [id number] Repository mya Date:6674-51-29BC () [address] [place] [address] 422[address]TF: 01/02/2018 Secondary CHERISH A [place] Insurance:[facility] MILLERDOB: [facility] [id number] Hospital Number: Repository [id number] Date:7523-79-91ZJ [address] [place] [address] 987[address]GU: 01/02/2018 Tertiary NOT GIVENUNK Bg Insurance:SELF PAY [facility] Number: Effective Repository Date:2018-01-02 12/27/2017 VIRGIL A Primary Kendell Pederson [id number] DARLEEN Insurance:ANTHEMPolic MillerDOB: Community LNAPT [address], y Number: [id number] [place] [address]Kvp: [id number] Repository mya Date:5294-80-93MP () [address] [place] [address] 29786KM: 12/27/2017 Secondary CHERISH A [place] Insurance:[facility] MILLERDOB: [facility] [id number] Hospital Number: Repository [id number] Date:7341-15-67WD [address] [address]ZP: 12/27/2017 Tertiary NOT GIVENUNK Bg Insurance:SELF PAY [facility] Number: Effective Repository Date:2017-12-05 12/24/2017 CHERDELIA A Primary Kendell [id number] DARLEEN Insurance:ANTHEMPolic MillerDOB: Community LNAPT [address], y Number: [id number] County General Hospital [address]Lvl: [id number] Repository mya Date:9161-38-42HQ () [address] [place] [address]ED: 12/24/2017 Secondary CHERISH A [place] [facility] [id number] Hospital Number: Repository [id number] Date:4149-88-10BL [address] [address]CC: 12/24/2017 Tertiary NOT GIVENUNK Bg Insurance:SELF PAY [facility] Number: Effective Repository Date:2017-12-24 12/10/2017 CHERISH A Primary Kendell Pederson [id number] DARLEEN Insurance:ANTHEMPolic MillerDOB: Community [facility]NA[facility] [address], y Number: [id number] [place] [address]Zpf: [id number] Repository mya Date:3869-84-33IU () [address] [place] [address] 47377EZ: 12/10/2017 Secondary CHERISH A [place] Insurance:[facility]: [facility] [id number] Hospital Number: Repository [id number] Date:3344-46-90LR [address] [address]JP: 12/10/2017 Tertiary NOT GIVENUNK Bg Insurance:SELF PAY [facility] Number: Effective Repository Date:2017-12-10 12/05/2017 CHERISH A Primary Kendell [id number] DARLEEN Insurance:ANTHEMPolic MillerDOB: Community LNA[facility] [address], y Number: [id number] County General Hospital [address]Wmy: [id number] Repository mya Date:2164-50-66LS () [address] [place] [address]JJ: 12/05/2017 Secondary CHERISH A [place] Insurance:[facility] MILLERDOB: [facility] [id number] Hospital Number: Repository [id number] Date:4310-78-33QX [address] [place] [address] 68673ZP: 12/05/2017 Tertiary NOT GIVENUNK Bg Insurance:SELF PAY [facility] Number: Effective Repository Date:2017-12-05 11/07/2017 CHERISH A Primary Kendell Pederson [id number] DARLEEN Insurance:ANTHEMPolic MillerDOB: Community LNA[facility] [address], y Number: [id number] County General Hospital [address]Luz: [id number] Repository mya Date:8252-30-07JJ () [address] [place] [address] 723[address]IX: 11/07/2017 Secondary CHERISH A [place] Insurance:[facility] MILLERDOB: [facility] [id number] Hospital Number: Repository [id number] Date:7803-00-27AF [address] [place] [address]EU: 11/07/2017 Tertiary NOT GIVENUNK [place] Insurance:SELF PAY [facility] Number: Effective Repository Date:2017-11-07 10/03/2017 CHERISH A Primary Kendell Pederson [id number] DARLEEN Insurance:ANTHEMPolic MillerDOB: Community LNA[facility] [address], y Number: [id number] [place] [address]Gbc: [id number] Repository mya Date:4780-34-27KE () [address] [place] [address] 27718XM: 10/03/2017 Secondary CHERISH A [place] Insurance:[facility] MILLERDOB: Community COMMUNITY PLANPoly [id number] Hospital Number: Repository [id number] Date:4271-50-32HK [address] [place] [address] 570[address]UF: 10/03/2017 Tertiary NOT GIVENUNK Bg Insurance:SELF PAY [facility] Number: Effective Repository Date:2017-10-03 06/21/2017 CHERISH A Primary Insurance:[facility] CHERISH A [place] [id number] [facility] MILLERDOB: Community LNAPT [address], Number: [id number] County General Hospital [address]Fyc: [id number] Repository Date:7832-50-49FJ [address] () [address] [place] [address] 576[address]NE: 06/21/2017 Secondary NOT GIVENUNK Bg Insurance:SELF PAY [facility] Number: Effective Repository Date:2017-06-21 06/08/2017 CHERISH A Primary Insurance:[facility] CHERISH A [place] [id number] [facility] MILLERDOB: Community LNAPT [address], Number: [id number] County General Hospital [address]Xlz: [id number] Repository Date:1716-83-67UR [address] () [address] [place] [address] 849[address]CO: 06/08/2017 Secondary NOT GIVENUNK Bg Insurance:SELF PAY [facility] Number: Effective Repository Date:2017-06-08 05/18/2017 CHERISH A Primary CHERISH A [place] [id number] DARLEEN Insurance:MOLINAPolic MILLERDOB: Community LNAPT [address], y Number: [id number] County General Hospital [address]Lra: [id number] Repository Date:7392-18-70CO [address] () [id number] [place] [address] 15[address]MN: 05/18/2017 Secondary NOT GIVENUNK [place] Insurance:SELF PAY [facility] Number: Effective Repository Date:2017-05-18
== END ==
PROVIDERS: Visit Provider Obstetrics & Gynecology
DX: Z11.3 Encounter for screening for infections with a predominantly sexual mode of transmission (principal); Z32.01 Encounter for pregnancy test, result positive
CPT/HCPCS: 87491; 87591; 88175; G0145

== ENCOUNTER 2018-06-29 12:40 | Emergency (ER) | payer MEDICAID, SELFPAY ==
[2018-06-29 12:41] VITALS: BP 139/81; PULSE 101; RESP 16; TEMP 36.6; O2SAT 100; BMI 27.2
[2018-06-29 12:46] VITALS: BP 138/84; PULSE 102; RESP 16; O2SAT 99
--- NOTE | 2018-06-29 12:55 | RAD_ITS ---
STUDY: X-RAY - RIGHT KNEE REASON FOR EXAM: Female, 23 years old. Post reduction of the patellar dislocation. TECHNIQUE: 2 view(s) of the knee. COMPARISON: None. FINDINGS: Normal visualized distal femur. Normal visualized proximal tibia and fibula. Normal proximal tibiofibular articulation. Normal medial femorotibial compartment. Normal lateral femorotibial compartment. Normal patellofemoral articulation. Tiny joint effusion. RAD/Knee 1 or 2 Views IMPRESSION: Normal x-ray examination of the knee. Tiny joint effusion. Electronically Signed: Tripp Perrin MD at 13:20 EST , Service support ,
--- NOTE | 2018-06-29 13:02 | ED.VISSUMM ---
- ER Visit Summary Date of Service: 06/29/18 Chief Complaint: Atraumatic right knee pain History of Present Illness: The patient is a 23 F who has a past medical history significant for 3 prior patellar dislocations. She states she was sitting 1 to stand move her right leg and her patella dislocated. There is no history of trauma. She denies paresthesia, anesthesia motor weakness. She does complain for significant pain. Her knee is flexed to approximately 100 degrees. The patella is displaced laterally Physical Examination: Knee in flexion with lateral displacement of patella. DP and PT pulse are palpable. Is no evidence of trauma to the extremity. The remainder of exam is unremarkable. Please read written note. Test Results: Post reduction x-ray, 2 view, is unremarkable per my interpretation Emergency Department Course and Treatment: The right leg was extended and the patella was reduced with minimal discomfort. Patient is no longer complaining of pain Treatment Plan: Knee immobilizer and referral to Dr. Baljinder Serrato Disposition: Outpatient orthopedic follow-up Impression: Right patella dislocation status post reduction This note was generated with [employer] dictation software. It may contain incorrect words, spelling, and punctuation that were not noted in review of the chart prior to signing ED Disposition - Plan for ED Patient: Disposition: Home or Assisted Living Instructions: ED Dislocation Patella Referrals: Care Physician,No Primary [Primary Care Provider] - Kendell Serrato MD [STAFF PHYSICIAN] - 5-7 Days Additional Instructions: Wear knee immobilizer during the day. Call Dr. Serrato's office today to be seen within the next 5-7 days to discuss treatment options.
== END 2018-06-29 13:35 | disposition home or self-care (01) ==
LOC: ED 13:15
PROVIDERS: Emergency Provider Emergency Medicine; Family Provider Family Medicine; PCP Family Medicine
DX: M22.01 Recurrent dislocation of patella, right knee (principal); Z72.0 Tobacco use
CPT/HCPCS: 27560; 73560; 99284

== ENCOUNTER 2019-08-27 10:30 | Outpatient (RCR) | payer BC, SELFPAY ==
[2019-08-27 11:49] LABS: hCG Titer Quant., Serum 13776 mIU/mL (1-3)
== END 2019-09-05 18:00 | disposition home or self-care (01) ==
LOC: LAB 10:30
PROVIDERS: Referring Provider Obstetrics & Gynecology; Visit Provider Obstetrics & Gynecology
DX: N91.2 Amenorrhea, unspecified (principal)
CPT/HCPCS: 36415; 84702

== ENCOUNTER → 2019-10-03 | Outpatient (CLI) | payer BC, SELFPAY ==
[2019-10-03 11:28] LABS: Absolute Lymphocyte Count 1.89 X10^3/uL (0.83-4.51); Absolute Neutrophil Count 7.4 X10^3/uL (2.0-7.7); Basophil# 0.06 X10^3/uL; Basophil% 0.6 % (0-1); Hematocrit 38.2 % (37-47); Hemoglobin 12.9 g/dL (12.0-15.0); Lymphocyte # 1.89 X10^3/ul (4.0); Lymphocyte % 18.8 % (19-41); Mean Corp Hgb Conc 33.8 g/dL (32-36); Mean Corpuscular Hgb 30.9 pg (27.0-32.0); Mean Corpuscular Volume 91.6 fL (81-99); Mean Platelet Vol. 11.5 fl (6.2-12.0); Monocyte# 0.51 X10^3/uL; Monocyte% 5.1 % (0-10); NRBC Flagged by Analyzer 0 % (0-5); Neutrophil # 7.44 X10^3/uL (2.7-7.7); Neutrophil % 74.1 % (47-70); Platelet Count 190 K/mm3 (150-450); RBC Distribution Width CV 12.3 % (11.6-14.6); RBC Distribution Width SD 40.8 fl (35.1-43.9); Red Blood Count 4.17 M/mm3 (4.2-5.4)
[2019-10-03 11:36] LABS: Amphetamine Urine VISTA NEGATIVE (<1000 ng/mL); Barbiturate Urine VISTA NEGATIVE (< 200 ng/mL); Benzodiazepine Urine VISTA NEGATIVE (< 200 ng/mL); Cocaine Urine VISTA NEGATIVE (< 300 ng/mL); Color, Urine Yellow (Yellow); Ecstacy Urine VISTA NEGATIVE (< 500 ng/mL); Glucose, Dipstick Normal (Normal); Ketone-Dipstick Negative (Negative); Leukocyte Esterase-Dipstick Negative /ul (Negative); Methadone Urine VISTA NEGATIVE (< 300 ng/mL); Nitrite-Dipstick Negative (Negative); Occult Blood-Urine Negative /ul (Negative); PCP Urine VISTA NEGATIVE (< 25 ng/mL); Protein-Dipstick Negative (Negative); THC Urine VISTA POSITIVE (< 50 ng/mL); Urine Bilirubin Dipstick Negative (Negative); Urine Clarity Sl. Cloudy (Clear); Urine Urobilinogen Normal (Normal); Vista UDS pH Range 6
[2019-10-03 12:39] LABS: HIV - WCH Non-Reactive (Nonreactive); Hepatitis B Surface Antigen Non-Reactive (Nonreactive); Hepatitis C Antibody Non-Reactive (Nonreactive); Rubella IgG 61.6 IU/mL
[2019-10-03 13:30] LABS: Chlamydia Trachomatis by PCR Negative (Negative); Neisserai gonorrhoeae by PCR Negative (Negative); Probe Check PASS; Sample Adequacy Control PASS; Specimen Processing Control PASS
[2019-10-10 00:54] LABS: Prenatal RPR NONREACTIVE (NONREACTIVE)
== END | disposition home or self-care (01) ==
LOC: WOBLAB 10:17
PROVIDERS: Visit Provider Obstetrics & Gynecology
DX: Z11.3 Encounter for screening for infections with a predominantly sexual mode of transmission (principal)
CPT/HCPCS: 36415; 80307; 81002; 84443; 85025; 86703; 86762; 86803; 87340; 87491; 87591

== ENCOUNTER → 2020-01-29 | Outpatient (CLI) | payer BC, SELFPAY ==
[2020-01-29 10:59] LABS: Hematocrit 37.6 % (37-47); Hemoglobin 12.3 g/dL (12.0-15.0); Mean Corp Hgb Conc 32.7 g/dL (32-36); Mean Corpuscular Hgb 31.1 pg (27.0-32.0); Mean Corpuscular Volume 95.2 fL (81-99); Mean Platelet Vol. 11.1 fl (6.2-12.0); Platelet Count 131 K/mm3 (150-450); RBC Distribution Width CV 12.6 % (11.6-14.6); RBC Distribution Width SD 44.1 fl (35.1-43.9); Red Blood Count 3.95 M/mm3 (4.2-5.4); White Blood Count 11.3 K/mm3 (4.4-11.0)
[2020-01-29 11:26] LABS: Glucose Challenge Gest 1H 50g 92 mg/dL (70-140)
== END | disposition home or self-care (01) ==
LOC: WOBLAB 09:37
PROVIDERS: Visit Provider Obstetrics & Gynecology
DX: Z34.83 Encounter for supervision of other normal pregnancy, third trimester (principal)
CPT/HCPCS: 36415; 82950; 85027

== ENCOUNTER → 2020-03-24 | Outpatient (CLI) | payer BC, SELFPAY | END | disposition home or self-care (01) | LOC: LABSPEC 10:16 | PROVIDERS: Visit Provider Student in an Organized Health Care Education/Training Program | DX: Z36.85 Encounter for antenatal screening for Streptococcus B (principal) | CPT/HCPCS: 87081 ==

== ENCOUNTER 2020-04-15 05:00 | Inpatient (IN) | payer BC, SELFPAY ==
--- NOTE | 2020-04-14 23:01 | HP.PCM_ITS ---
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 : 1995 Age: 25 Address: [address] [place] [address] Phone: H) [phone] (O) [phone] Insurance Carrier: prollie [id number] Emergency Contact: FLAKITO [phone] ...................................................................... Final ROD: 04/21/20 By Ultrasound: 6 weeks 3 days PARITY: (G-Total Pregnancies P-Fullterm,Premature,Induced AB,Spont AB, Ectopics, Multiple,Living) ROD CONFIRMATION: By LMP: 07/16/19 Initial Exam: 04/21/20 By First Ultrasound Exam: 04/23/20 Final ROD: 04/21/20 OB PROBLEM LIST: 4 yr old twin boys, delivered by C/S (breech) Declines AFP/CF testing Hx of UTI's PP hemorrhage - rec'd 2 Units blood Prior x 2--plan repeat --with tubal Urine tox screen positive for THC ALLERGIES: Macrobid Hives and/or rash No Known Allergies MEDICATIONS: 28 mg iron-800 mcg tablet One pill by mouth once a day promethazine 12.5 mg tablet 1 pills by mouth every 4 hours as needed for nausea Supplement (s) [No Strength] [place] once daily Zofran 8 mg tablet One pill by mouth three times a day prn nausea SOCIAL HISTORY: Smoking - used to smoke but quit Alcohol Use - denies drinking Diet - mod balanced diet, needs some improvement Lifestyle - moderate stress lifestyle and Exercise - none Employer - [employer] Job Description - Illicit Drug Use - denies use of street drugs Sexual Activity - Residence - lives w/, Lui Place of - [place], [place] Spouse-Sig Other Name - Lui Ruggiero Spouse-Sig Other Occupation - [employer] Spouse-Sig Other Phone No - [phone] Children Name(s) - Edwardo Machado (07/05/15) BRIANNA, Her mother has custody, Irren DS PRIOR DELIVERY HISTORY __ DEL DATE GEST LAB WT LB WT OZ TYPE ANES LABOR TX 22 Dec 23 39 0 10 4 C-Sec Epidural No 28 Jun 23 36 24 7 4 C-Sec Spinal no ANTEPARTUM FLOW CHART VISIT GE RTC FU F F MD U U DATE WK MD WKS HT PN HR M SS BP ED WT MD GL D EF ST __ ____ ___ __ __ ___ __ __ __ ___ __ __ __ ___ __ 02 Apr JMW 3 37 + + 136/82 sl 188 - - Mar 37 CM 1 37 V + + 128/70 sl 183 - - Mar 36 CM 1 36 V + + 138/72 sl 183 04 Mar JMW 2 34 + + 112/70 sl 185 14 Mar 07 JMW 3 31 + + 124/52 sl 176 - - Feb 02 JMW 3 28 + + 130/64 tr 175 - - Dec 28 JMW 4 24 + + 120/58 0 165 Nov 23 JMW 4 20 + + 118/62 0 161 tr - Oct 20 JMW 4 15 + ? 120/64 0 158 28 September 15 JMW 4 U+ - 128/76 0 157 - - 24 Aug 11 JMW 5 U+ US 132/80 0 156 tr - ANTEPARTUM NOTE(S): Apr 08 2020: Covid Screening Given,Questions answered and consents signed Mar 31 2020: Mar 24 2020: Mar 11 2020: feeling well. cxs on and off, needs refill for Zofran. AM Feb 19 2020: feeling well., Good FM Jan 29 2020: Good FM Dec 25 2020: glucola instructions given Nov 28 2019: Comp US today, feeling well Oct 31 2019: feeling well. Oct 03 2019: see note Aug 30 2019: Sono Today,Nausea Daily COMPREHENSIVE ANTEPARTUM NOTE(S): Apr 08 2020: Order for Covid screening filled out with same declined by Virgil at this time. TRIPP Mar 31 2020: Reporting good FM. No Sx labor. Taking Zofran as needed for nausea. Some edema in her feet with prolonged activities on her feet. RC/S, BPS scheduled for 04/15/20. She is pre-registered. Mar 31 2020: 37/0w visit. No issues today. F/u 1w. C/s 04/15. CM Mar 27 2020: H taken to OB. tkg Mar 24 2020: 36/0w. GBS done, declines larc. For tubal at time of c/s. F/u 1w CM Mar 24 2020: Virgil is here for PNV. Still having c/o nausea. Using Zofran approx qday. Needs RF. No vomiting. Slight edema in ankles but none in hands. Goof FM.. LARC form signed. Declined. States she wants a tubal. No other concerns for today. LSS Jan 29 2020: Virgil is here for her PNV. Good FM. She has a trace of edema in ankles. States that Zofran is helping her nausea and will need refills today. States that she has acid reflux, she is not taking anything for this. Medications and allergies reviewed today. No other questions or concerns expressed today. LJW Dec 26 2019: Virgil is here for a PNV. Good FM. No edema present. Glucola drink and instructions given for 28 week appt. Advised to call with questions if needed. EMILY Oct 04 2019: Telehealth NOB : 24 y.o. G 3 P 3 (set of twins) previous smoker with her Mother having custody of her twins and she and spouse are raising their son and doing well. 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 Plans repeat at [facility] with first due to Breech presentation for twins, and last in 2018 with DS. We briefly discussed good nutrition and healthy snacks with ideal weight gain of 20-25 lbs. Reviewed foods to avoid with guidelines. Encouraged good hydration with 1 - 2 gallons of water/fluids daily as well as she plans to breastfeed. Exercise/activity reviewed and reminded of lifting restriction of 20-25 lbs with common sense. Brief discussion of common discomforts in and helpful hints for each(headache, insomnia, heartburn, diarrhea, urine frequency, hemorrhoids, backache, leg cramps, low abdominal pains, round ligament pains, fatigue, difficulty breathing, Christopher Martinez, and excess production of vaginal discharge). Reviewed emotional changes from first through third trimester. Admits she plans to get a cat in the near future, and we discussed the need for someone else to change litter box or at the very least for her to wear gloves and a face mask, with she agreed. Had chickenpox as a child. Genetic screening form filled out and declines AFP,CF with consent signed. EPDC form filled out with a score of 7 and reports feeling well. labs were drawn at [facility] on 10/03/19 with same reviewed today and she admits to using a THC Gummy periodically for chronic (R) knee pain that she injured acouple years ago, and she is working on receiving a medical marijuana script for same. Advised of precautions with with verbalized understanding. TRIPP Oct 03 2019: Virgil is here for a PNV. 11 wks and 2 days. Pt insists on US today to check on her L ovarian cyst. Feeling good for the most part. Has some nausea, uses an off-brand Zofran to treat. Pt states she does not want actual Zofran as she has heard bad things about it. paperwork and labs today, GC/CHL. Consents signed. MK Apr 18 2019: Virgil presents here today for annual pap/exam. 24 y.o. G 2 P 3 previous smoker(quit in 10/2018) with regular menses on OCP with LMP of 12-12-19(today) and lasting her average of 6-7 days. 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 History of normal pap screening in 2018. Medication and Allergy lists up-dated with refill needed of her Sprintec and send to [facility]). TRIPP Apr 18 2019: ok REVIEW OF SYSTEMS: GENERAL - Denies fever, or chills SKIN - Denies rash, new skin lesions, or change in moles EYES - Denies blurred vision, or change in visual acuity EARS - Denies ear pain, or difficulty hearing NOSE - Denies nasal congestion, discharge, or bleeding MOUTH - Denies sore throat, or difficulty swallowing NECK - Denies pain or swelling RESPIRATORY - Denies shortness of breath, cough, wheezing CARDIOVASCULAR - Denies palpitations, chest pain, orthopnea, PND, peripheral edema, syncope or claudication GASTROINTESTINAL - Denies nausea, vomiting, diarrhea, constipation, Denies abdominal pain, melena and or bright red blood GENITOURINARY - Denies dysuria, frequency of urination, urgency, or hesitancy MUSCULOSKELETAL - Denies joint or muscle pain, or back pain NEUROLOGICAL - Denies localized numbness, weakness, or tingling PSYCHIATRIC - Denies depression, anxiety, substance abuse or suicide attempts ENDOCRINE - Denies heat or cold intolerance, weight loss or gain, increasing thirst HEMATO-IMMUNOLOGIC - Denies easy bruising, bleeding, oral ulcerations or recurrent infections GENETICS SCREENING: Age 35+ years: No Thalassemia: No Neural Tube Defect: No Down Syndrome: No, second cousin JACQUELYN-SACHS: No Sickle Cell Disease: No Hemophilia: No Musc. Dystrophy: No Cystic Fibrosis: No-declines screening Edwin Chorea: No Mental Retardation: No Fragile X: No Other genetic: No Other defects: No SABs/still births: No Drugs since LMP: No Comments: 2 cousins with Autism INFECTION HISTORY: High risk AIDS: No High risk Hepatitis: No Exposed to TB: No Exposed to Herpes: No Rash/viral illness since LMP: No History of STD: No MENSTRUAL HISTORY: *Menses Amount/Duration: 6-7 DAYSMenses Regularity: RegularFrequency: monthlyMenarche (Age Onset): 15* PAST SUMMARY: PARITY: 1. Total Pregnancies............ 3 2. Full Term Pregnancies........ 2 3. Premature.................... 0 4. Abortions - Induced.......... 0 5. Abortions - Spontaneous...... 0 6. Ectopics..................... 0 7. Multiple Births.............. 1 8. Living Children.............. 3 PAST #1: Date of :.................. 07/05/15 Gestation Weeks:................ 36 Length of labor(hours):......... 24 Sex:............................ M Weight-lbs:............... 7 Weight-oz:................ 4 Type of Delivery:............... C-Sect Type of Anesthesia:............. Spinal Place of Delivery:.............. [place] Treatment of Labor?:.... no Comment: TWIN 2 -7 LBS 6 OZ. PP BLEED. PAST #2: Date of :.................. 12/27/17 Gestation Weeks:................ 39 Length of labor(hours):......... 0 Sex:............................ M Weight-lbs:............... 10 Weight-oz:................ 4 Type of Delivery:............... C-Sect Type of Anesthesia:............. Epidural Place of Delivery:.............. [place] Treatment of Labor?:.... No Comment: PHYSICAL EXAMINATION General Appearence: 25 yo female in no acute distress Vital Signs: AF, VSS Heart: RRR without rubs or gallops Lungs: CTA x 2 Breasts: deferred Abdomen: gravid Pelvis: Cervix: Presentation: cephalic Station: Fetus: Size: AGA Movement: present Heart: present Labs for : VIRGIL RUGGIERO since 07/26/2019 ORDER DATEIN DESCRIPTION VALUE UNITS RANGE A+ COMMENT CULTURE, GROUP B STREPTOCOCCUS 03/24/20 NOTE Original Ordering Provider: Isha Wilcox ELSA Culture Group B Beta Streptococcus is not isolated. Reviewed by DEIDRA GLUCOSE CHALLENGE GEST 1H 50G 01/29/20 NOTE Original Ordering Provider: Deidra Fry GLU GEST 50G 1H 92 mg/dL 70-140 Reviewed by DEIDRA CBC-COMPLETE BLOOD CNT NO DIFF 01/29/20 NOTE Original Ordering Provider: Deidra Fry WBC 11.3 K/mm3 4.4-11.0 H RBC 3.95 M/mm3 4.2-5.4 L HGB 12.3 g/dL 12.0-15.0 HCT 37.6 % 37-47 MCV 95.2 fL 81-99 MCH 31.1 pg 27.0-32.0 MCHC 32.7 g/dL 32-36 w RDW CV 12.6 % 11.6-14.6 RDW SD 44.1 fl 35.1-43.9 H PLT 131 K/mm3 150-450 L MPV 11.1 fl 6.2-12.0 Reviewed by DEIDRA RPR 10/03/19 NOTE Original Ordering Provider: Deidra Fry RPR NONREACTIVE NONREACTIVE Reviewed by DEIDRA HEPATITIS C ANTIBODY 10/03/19 NOTE Original Ordering Provider: Deidra Fry HEPATITIS C AB Non-Reactive Nonreactive Non Reactive: < 0.8 Equivocal: >/= 0.8 to < 1.0 Reactive: >/= 1.0 The CDC recommends that a reactive/equivocal HCV antibody result be followed up by the HCV Nucleic Acid Amplification test (970478) Reviewed by DEIDRA HEPATITIS B SURFACE ANTIGEN 10/03/19 NOTE Original Ordering Provider: Deidra Fry HEPB SURFACE AG Non-Reactive Nonreactive Reviewed by DEIDRA HIV - [facility] 10/03/19 NOTE Original Ordering Provider: Deidra Fry HIV - [facility] Non-Reactive Nonreactive Reviewed by DEIDRA RUBELLA IGG 10/03/19 NOTE Original Ordering Provider: Deidra Fry RUBELLA IGG 61.6 IU/mL Antibody results Interpretation of Immune Status < 5 IU/ml Presumed Non-immune 5 - < 10 IU/ml Equivocal > or = 10 IU/ml Presumed Immune Reviewed by DEIDRA T AND S-NO CHARGE W/PNP 10/03/19 Reason for Type AND Screen/Red Cells: Surgery? [facility]~[address] [place], [address]~ BLOOD TYPE GEL O POSITIVEw N AB SCREEN GEL NEGATIVE N Reviewed by DEIDRA THYROID STIM HORMONE (TSH) 10/03/19w NOTE Original Ordering Provider: Deidra Fry TSH 0.80 uIU/mL 0.358-3.74 Reviewed by DEIDRA rene URINALYSIS, ROUTINE (DIPSTICK) 10/03/19 NOTE Original Ordering Provider: Deidra Fry COLOR Yellow Yellow CLARITY Sl. Cloudy Clear GLUCOSE, UR Normal mg/dl Normal BILIRUBIN URINE Negative mg/dL Negative KETONE UR Negative mg/dl Negative SP.GR. DIPSTX 1.010 1.002-1.030 PH UR 7.0 5.0 - 8.0 PROT DIPSTX Negative mg/dl Negative UROBILI Normal mg/dl Normal NITRITE UR Negative Negative OCCULT BLOOD-UR Negative /ul Negative LEUK ESTERASE Negative /ul Negative Reviewed by DEIDRA URINE DRUG SCREEN (VISTA) 10/03/19 NOTE Original Ordering Provider: Deidra Fry TO BE CONFIRMED CONFIRMATORY TESTING FOR ALL POSITIVE URINE DRUG SCREEN RESULTS WILL ONLY BE SENT OUT UPON PHYSICIAN ORDER. VISTA Urine Drug Screen methods provide only preliminary analytical test results. A more specific alternate chemical method must be used in order to obtain a confirmed analytical result. Gas chromatography/mass spectrometery (GC/MS) is the preferred confirmatory method. Clinical consideration and professional judgement should be applied to any drug of abuse test result, particularly when preliminary positive results are used. URINE TCA TESTING MUST BE ORDERED SEPARATELY. USE TEST MNEMONIC: [facility] VISTA UDS PH 6 AMPHETAMINES NEGATIVE <1000 ng/mL BARBITIURATES NEGATIVE < 200 ng/mL BENZODIAZIPINE NEGATIVE < 200 ng/mL COCAINE NEGATIVE < 300 ng/mLw ECSTACY NEGATIVE < 500 ng/mL METHADONE NEGATIVE < 300 ng/mL OPIATES NEGATIVE < 300 ng/mL PCP NEGATIVE < 25 ng/mL THC POSITIVE < 50 ng/mL H Reviewed by DEIDRA CBC W/DIFF, AUTOMATED 10/03/19 NOTE Original Ordering Provider: Deidra Fry WBC 10.0 K/mm3 4.4-11.0 RBC 4.17 M/mm3 4.2-5.4 L HGB 12.9 g/dL 12.0-15.0 HCT 38.2 % 37-47 MCV 91.6 fL 81-99 MCH 30.9 pg 27.0-32.0 MCHC 33.8 g/dL 32-36 RDW CV 12.3 % 11.6-14.6 RDW SD 40.8 fl 35.1-43.9 PLT 190 K/mm3 150-450 MPV 11.5 fl 6.2-12.0 r NEUT% 74.1 % 47-70 H LY% 18.8 % 19-41 L MONO% 5.1 % 0-10 EO% 1.0 % 0-5 BASO% 0.6 % 0-1 IM GRAN % 0.400 % 0.0-0.9 IG% - Immature Granulocytes (promyelocytes, myelocytes and metamyelocytes) > 1% indicates that a LEFT SHIFT is Present. ABSOLUTE NEUT 7.4 X10 3/uL 2.0-7.7 ABSOLUTE LYMPH 1.89 X10 3/uL 0.83-4.51 NRBC, FLAGGED 0 % 0-[address]/SCOT [facility] BY PCR 10/03/19 NOTE Original Ordering Provider: Deidra rene [facility] PCR Negative Negative NG BY PCR Negative Negative Reviewed by DEIDRA HCG TITER QUANT., SERUM 08/27/19 NOTE Original Ordering Provider: Deidra Fry HCG QUANT. [id number] mIU/mL 1-3 H hCG levels with Gestational Age Gestational Age hCG mIU/mL (IU/L) 0.2 - 1 week 5 - 50 1-2 weeks 50 - 500 2-3 weeks 100 - 5000 3-4 weeks 500 - 17854 4-5 weeks 1000 - 69528 5-6 weeks 76110 - 100,000 6-8 weeks 86875 - 200,000 2-3 months 85452 - 100,000 Reviewed by DEIDRA Impression /Plan: 39 week IUP with prior . Plan repeat with tubal. Preparations in progress for delivery.
[2020-04-15] VITALS (18 sets, daily range): BP systolic 97–129; BP diastolic 58–83; PULSE 69–99; RESP 12–20; TEMP 36.1–36.6; O2SAT 94–100; BMI 26.9
[2020-04-15] MEDS: Lactated Ringers 1,000 ML 999 ML IV (05:25)
[2020-04-15 05:36] LABS: Absolute Neutrophil Count 10.7 X10^3/uL (2.0-7.7); Basophil# 0.09 X10^3/uL; Basophil% 0.6 % (0-1); Eosinophil# 0.13 X10^3/uL; Eosinophils% 0.9 % (0-5); Hematocrit 36.8 % (37-47); Lymphocyte % 16.2 % (19-41); Mean Corp Hgb Conc 32.6 g/dL (32-36); Mean Corpuscular Volume 95.1 fL (81-99); Mean Platelet Vol. 11.2 fl (6.2-12.0); Monocyte# 0.85 X10^3/uL; NRBC Flagged by Analyzer 0 % (0-5); Neutrophil % 75.6 % (47-70); Platelet Count 142 K/mm3 (150-450); RBC Distribution Width CV 12.8 % (11.6-14.6); RBC Distribution Width SD 44.4 fl (35.1-43.9); Red Blood Count 3.87 M/mm3 (4.2-5.4); White Blood Count 14.2 K/mm3 (4.4-11.0)
[2020-04-15] MEDS: Acetaminophen 500 MG Tablet 1000 MG PO ×4 (05:39→23:44)
--- NOTE | 2020-04-15 05:49 | NURSING ---
pt states she did not think she had any hemerrhoids at this time, but states she did have them during this
[2020-04-15] MEDS: Lactated Ringers 1,000 ML 150 ML IV (06:06)
[2020-04-15] MEDS: Sodium Citrate/Citric Acid 30 ML UDC PO (07:08)
--- NOTE | 2020-04-15 08:33 | PCM.OPRPT ---
Delivery Classification: Scheduled Final ROD: 04/21/20 Final ROD Source: US <20 weeks Gestational age: 39 Weeks and 1 Days career services coordinator: Ross Johnson Type of Anesthesia:: Spinal - With Duramorph Date of Procedure: 04/15/20 Pre-Operative Diagnosis: Prior Section, Desires Permanent Sterilization Post-Operative Diagnosis: Prior Section, Desires Permanent Sterilization Description of Procedure: Surgeon: Ayden Fry MD, FACOG Anesthesia: Isha Sidhu CRNA Procedure: Repeat Low Transverse Cervical Caesarean Section And Bilateral Salpingectomy Findings: Viable male infant with Apgars of 9/9 in occiput anterior presentation with clear amniotic fluid and normal three-vessel placenta. Lower uterine segment was thin with extension of uterine scarring and incision into the left angle. Indication: This is a 25-year-old who presents for her third at 39+ weeks gestation. care has otherwise been uneventful. The patient has been counseled regarding the risk and indications of this procedure including the possibility of bleeding infection and injury to surrounding structures such as bowel bladder. She also desires permanent sterilization and has considered this form of control for quite some time. She understands the permanent nature of the procedure, the failure rate of up to 1%, and availability of other nonpermanent control options. All questions were answered. Procedure: Patient was taken to the operating room where after spinal anesthesia was placed, the patient was prepped and draped in usual sterile fashion and a Isaac catheter was placed. The abdomen was entered through the patient's prior Pfannenstiel incision and peritoneum was entered bluntly. After developing a bladder flap on the lower uterine segment a low transverse incision was made on the uterus and head was easily delivered onto the operative field the nose mouth and oropharynx were bulb suctioned. Subsequently a viable male infant was born with Apgars of 9/9. The infant was noted to cry move all extremities vigorously on the operative field. The umbilical cord was doubly clamped and ligated and infant handed to the nursery personnel who were present for the delivery. Placenta was delivered and noted to be 3 vessels and normal. Uterus was exteriorized and remaining placental tissue was removed. The uterus was then closed in 2 layers first with running locked 0 Vicryl suture followed by a second imbricating layer with 0 Vicryl suture. 0 Vicryl suture was then used in a horizontal mattress interrupted fashion to affect final hemostasis of the uterine incision line. Normal fallopian tubes and ovaries were visualized and then ligated through the mesosalpinx and tube with the LigaSure device. The uterus was returned to the pelvis. Hemostasis was noted and rectus abdominis muscles were reapproximated in the midline with interrupted Number 0 Vicryl suture in a horizontal mattress fashion. Fascia was closed with running Number 1 PDS Strata fix suture. Subcutaneous tissue was irrigated with copious amounts of saline solution and then closed with running 3-0 Vicryl suture. Skin was closed with 4-0 monocryl suture in a running subcuticular fashion. Steri strips and a Mepilex dressing were placed across the incision. The patient tolerated the procedure well and was taken to the recovery room in satisfactory condition. Sponge, needle, and instrument counts were all reportedly correct. EBL was less than 500 cc. Ancef 2 gms IV was given prior to the procedure. Spicemen to Pathology: None Amniotic Fluid Description: Clear Placenta Disposition: [facility] Drain: Isaac to straight drain Cord Entanglement: None Cord Vessel Description: 3 Vessels Esitmated Blood Loss (ml): 500 cc Infant Gender: Male (1 minute): 9 (5 minute): 9 Antibiotic Given: Ancef 2 grams IV x1 Pt instructed on risks of surgery: Bleeding, Infection, Permanency, Failure Rate of 1 to 2%, Injury to surrounding structure(s) including bowel and bladder, Availability of other non-permanent control options Complications: None - Admit VTE Documentation VTE Present on Admission: Yes VTE Mechan Device Prophylaxis: SCD's
--- NOTE | 2020-04-15 08:42 | DCINST_ITS ---
Discharge Diet: No Restrictions Discharge Activity: May not drive while taking narcotic pain medications., May Shower, May Take a Tub Bath May resume sexual activity in: 4-6 weeks Lifting Restrictions: 20 pounds Additional Activity Instructions:: Nothing in the vagina for 4-6 weeks. You may return to work/school in 6 weeks. Call your doctor if your incision/area has: Continuous Slow Oozing, Sudden Increased Bleeding, Increased Pain/ Swelling, Increased Redness, Foul Smelling Discharge Call your doctor if you observe: Fever of 101 or Higher, Inability to urinate, Inability to have a bowel movement, Using more than one pad per hour Additional Instructions: If you experience any of the following, contact your healthcare provider. * Bleeding that soaks a pad every hour for 2 hours * Fever 100.4 or higher * Unrelieved incision or abdominal pain * Swelling, redness, discharge or bleeding from your incision or episiotomy site * Your incision begins to separate * Problems urinating (including inability to urinate or burning while urinating). * Visual changes * Severe headache * Flu-like symptoms * Pain or redness in one of both of your breasts * Pain, warmth, tenderness or swelling in your legs, especially the calf area * Frequent nausea and vomiting * Symptoms of depression or anxiety If you experience any of the following, call 911 or go to the nearest Emergency Room. * Chest pain * Problems breathing * Seizure activity * Partial or complete paralysis of a body part, slurred speech, weakness or drooping of the face, or a sudden inability to walk or hold your balance Allergies/Adverse Reactions: Allergies No Known Allergies Allergy (Verified 06/29/18 12:45) Medications to take at Discharge Docusate Sodium [Colace] 100 mg PO BID PRN PRN #60 cap 04/15/20 Oxycodone [Oxyir] 5 mg PO Q6H PRN PRN 7 Days #20 tablet 04/15/20 The following prescriptions were given: Docusate Sodium [Colace] 100 mg PO BID PRN PRN #60 cap PRN Reason: Constipation [facility] Oxycodone [Oxyir] 5 mg PO Q6H PRN PRN 7 Days #20 tablet PRN Reason: Pain Score 6-10 Transmission Status: Sent to [facility] Follow-Up: Call to make an appointment with your doctor for an incision check in 1-2 weeks. You will also need a 6 week post- follow up appointment. Test results from this visit will be discussed in further detail at your follow- up appointment, if applicable. Please Follow Up With: Ayden Fry MD - [phone] When: Call to make an appointment for an incision check in 2 weeks.
[2020-04-15] MEDS: Oxytocin 30 units/NS 500 ml 30 UNITS/500 ML IV.SOLN 167 UNITS IV (08:59)
--- NOTE | 2020-04-15 09:03 | FALS_PTH ---
PATIENT: VIRGIL BURKETT LOC: [facility] U#:[id number] AGE/SX: 25/ ROOM: WP004 RE04/15/[address]: Dr. Ayden Fry MD : 1995 BED: 1 DIS: 04/16/2020 SPEC #: [id number] RECD: 04/15/20 09:11 STATUS: BABAK NAT #: [id number] JAX: 04/15/20 09:[address]: Ayden Fry DEPT: SURGICAL PATHOLOGY RECD BY: Miguelina Estevez Tissues: Fallopian tube Procedures: Surgery Specimen Level II HEADER OPERATION: Tubal ligation PRE-OP DIAGNOSIS: Sterilization TISSUE SUBMITTED: Fallopian tubes, suture in right tube MICROSCOPIC DIAGNOSIS Bilateral fallopian tubes, salpingectomy: Bilateral fallopian tubes including fimbrial ends, no pathologic diagnosis. NANCY:abel 04/16/20 MICROSCOPIC DESCRIPTION Slides are reviewed. GROSS DESCRIPTION Received in fixative is one container labeled with the patient's name and designated bilateral fallopian tubes, suture in right tube. The specimen consists of two fallopian tubes with an average length of 7 cm and has an average diameter of 0.6 cm. Both fallopian tubes have normal fimbriated ends. No mass lesions are identified. Holistic Nutritionist sections are submitted in two cassettes as follows: 1 - right fallopian tube, 2 - left fallopian tube. / AM:abel 04/15/20 TC:4 CPT: 14964 x2
[2020-04-15 09:11] LABS: Pathology Specimen OB SEE PATHOLOGY REPORT
[2020-04-15] MEDS: Senna/Docusate Sodium 1 Tablet PO (10:27)
[2020-04-15] MEDS: Lactated Ringers 1,000 ML 100 ML IV (12:05)
[2020-04-15] MEDS: Ondansetron 4 MG/2 ML Vial IV (13:09)
[2020-04-15] MEDS: Ketorolac 30 MG/ML Syringe IV ×2 (13:36→20:36)
[2020-04-15] MEDS: Cefazolin 1 GM/50 ML BAG IV ×2 (14:30→22:14)
[2020-04-15] MEDS: 0.9% Saline Lock 10 ML Syringe IV (20:36)
--- NOTE | 2020-04-15 21:06 | NURSING ---
This time up with this RN was not first ambulation. Patient ambulated to bathroom and up to chair for Yvonne RN earlier in day.
[2020-04-16] MEDS: Ketorolac 30 MG/ML Syringe IV ×2 (01:58→08:33)
[2020-04-16] MEDS: 0.9% Saline Lock 10 ML Syringe IV ×2 (01:59→08:33)
[2020-04-16 04:09] VITALS: BP 114/67; PULSE 74; RESP 16; TEMP 36.4
[2020-04-16] MEDS: Acetaminophen 500 MG Tablet 1000 MG PO ×2 (05:49→12:05)
[2020-04-16 06:04] LABS: Hematocrit 30.5 % (37-47); Hemoglobin 9.7 g/dL (12.0-15.0); Mean Corp Hgb Conc 31.8 g/dL (32-36); Mean Corpuscular Hgb 30.4 pg (27.0-32.0); Mean Corpuscular Volume 95.6 fL (81-99); Mean Platelet Vol. 11.4 fl (6.2-12.0); Platelet Count 118 K/mm3 (150-450); RBC Distribution Width CV 12.9 % (11.6-14.6); Red Blood Count 3.19 M/mm3 (4.2-5.4); White Blood Count 10.1 K/mm3 (4.4-11.0)
[2020-04-16 07:48] VITALS: BP 114/66; PULSE 73; RESP 18; TEMP 36.6
--- NOTE | 2020-04-16 09:22 | PN.OBGYN_ITS ---
Subjective: Patient without complaints. Tolerating diet well. Positive flatus. Up and about the room moving well with minimal pain noted and minimal bleeding noted. Wants to go home today if the baby is able to go. Objective: Wound is clean, dry, intact with minimal bleeding noted. Hemoglobin and urine output okay. Minimal vaginal bleeding reported. - Physical Exam Vitals/I&O's: Vital Signs Temp Pulse Resp BP Pulse Ox 97.8 F 73 18 114/66 98 04/16/20 07:48 04/16/20 07:48 04/16/20 07:48 04/16/20 07:48 04/15/20 18:06 Oxygen Delivery Method Room Air Weight: 193 lb Body Mass Index (BMI) 26.9 Intake and Output for Last 24 Hours 04/14/20 04/15/20 04/16/20 23:59 23:59 23:59 Intake Total 4171.66 / 4171.66 Output Total 2200 / 2200 Balance 1971.66 / 1971.66 Laboratory Results 04/16/20 05:55: WBC 10.1, RBC 3.19 L, Hgb 9.7 L, Hct 30.5 L, MCV 95.6, MCH 30.4, MCHC 31.8 L, RDW Std Deviation 45.0 H, RDW Coeff of Alyce 12.9, Plt Count 118 L, MPV 11.4 Current Medications Acetaminophen (Acetaminophen 500 Mg Tablet) 1,000 mg PO Q6 BRAVO Last Admin: 04/16/20 05:49 Dose: 1,000 mg Documented by: Bisacodyl (Bisacodyl 10 Mg Suppository) 10 mg RECTAL UD PRN PRN Reason: If no BM Hydrocortisone (Hydrocortisone 2.5% Crm) 1 applic TOPICAL TID PRN PRN; Protocol PRN Reason: Discomfort Ibuprofen (Ibuprofen 600 Mg Tablet) 600 mg PO Q6H BRAVO Methylergonovine Maleate (Methylergonovine 0.2 Mg/Ml Ampul) 0.2 mg IM X1 PRN PRN Reason: Uterine Atony Naloxone HCl (Naloxone 0.4 Mg/Ml Syringe) 0.02 mg IV Q1M PRN PRN Reason: RR <10 and pt unresponsive Ondansetron HCl (Ondansetron 4 Mg/2 Ml Vial) 4 mg IV Q4H PRN PRN PRN Reason: Nausea Last Admin: 04/15/20 13:09 Dose: 4 mg Documented by: Oxycodone HCl (Oxycodone 5 Mg Tablet) 5 - 10 mg PO Q4H PRN PRN PRN Reason: Pain Score 4-10 Prochlorperazine Edisylate (Prochlorperazine 10 Mg/2 Ml Vial) 10 mg IV Q6H PRN PRN PRN Reason: NAUSEA Senna/Docusate Sodium (Senna/Docusate Sodium 1 Tablet) 0 tablet PO DAILY BRAVO Last Admin: 04/15/20 10:27 Dose: 1 tablet Documented by: Simethicone (Simethicone 80 Mg Tablet) 80 mg PO PCHS PRN PRN Reason: Indigestion/stomach pain Last Admin: 04/15/20 23:50 Dose: 80 mg Documented by: Sodium Chloride (0.9% Saline Lock 10 Ml Syringe) 5 - 15 ml IV UD PRN PRN Reason: SALINE FLUSH Last Admin: 04/16/20 08:33 Dose: 10 ml Documented by: Medical Necessity - Tobacco Use Smoking Status: Former smoker Assessment/Plan All Active Problems Gestational hypertension with significant proteinuria, delivered (Acute) Doing well postoperative day #1 status post repeat and bilateral salpingectomy. Will discharge to home later today if baby is able to go. Home- going instructions given.
--- NOTE | 2020-04-16 12:00 | CASEMGMT ---
Social Work Assessment Labor and Delivery Unit Patient Address: [address] [place] [address] Phone number: [phone] Date of Referral: 04/15/2020 Time of Referral: 1028 Referred By: Dr. Ayden Fry Date of Intervention: 04/16/2020 Time of Intervention: 1200 Reason for Referral: Maternal history of marijuana use during and reported history of bipolar disorder. History obtained from: Medical records and mother of baby (MOB) Merced Ruggiero; father of baby joined conversation during the later part of conversation. Household composition: MOB and father of baby (FOB) Lui Ruggiero, and their older son live in a home the parents purchased 2 years ago. Home situation is reported to be safe and adequate. Patient's parent/guardian status: DALLAS is a 25-year-old female to 38 years old (born 12.[birth year].1981). MOB denies any abuse or safety concerns in this relationship. MOB and FOB now have 2 children together, with MOB having 2 additional children from a prior relationship. Minor children include: Twins, Jeannette and Edwardo Wilcox, born 07/09/2015. In the custody of MOB mother Carisa Wilcox. During previous social work assessment, the MOB reported to have made some done choices which led to MOB being kicked out of the home and gently getting custody of the boys. MOB has limited contact with the twins. Gray Ruggiero, born 12/27/2017, and reportedly living in the home with MOB and FOB. baby, Max Ruggiero, born 04/15/2020. Medical History: DALLAS is 3, para 3 4 after delivering Max. care started at 6 weeks gestation and regular thereafter. Oldest was 9 pounds 8 ounces at . Apgars 9 and 9 at 1 and 5 minutes of life. MOB and FOB report they do not vaccinate their children. Educational Status: MOB graduated high school. No reported issues with reading, writing, or learning comprehension. Financial Status: DALLAS stays at home, and REYES works as a roll trucker for [employer]. Supplies: DALLAS reports to have all needed baby supplies including a bassinet for safe sleeping car seat. MOB is planning to breast-feed the baby. Childcare/Caregiver(s): MOB is the primary caregiver, with help from OB when he is not working. Transportation: MOB and FOB share one vehicle. Transportation is reported to be adequate. DALLAS reports her [id number] can assist if there is ever a need. Programs/Agencies Involved: DALLAS denies any type of agency involvement. The family is not interested in any referrals, as REYES likes to pay for everything himself and not rely on the government. No interest in any type of help me grow referral. Children Services/Legal Issues: No reports of any legal issues. Children services referral was made after last delivery due to concerns of parental frustration during care of baby. Uncertain whether case was opened and investigated. Behavioral Health Issues: Mental Health History: Will be has a history of depression and anxiety teenage years and was treated at the counseling center in the past. DALLAS now reportedly with a diagnosis of bipolar disorder. DALLAS is not on any current treatment. DALLAS denies any depression after the of last child. Denies any suicidal ideation or attempts. No reported thoughts of harming other people. Substance Use History: DALLAS endorses use of marijuana during in, with congestion by smoking. care record indicates however that MOB was ingesting THC Gummies. care record indicates as well as the MOB to this telegraphic typewriter installer that ingestion was in part due to right knee pain. DALLAS also reports she used marijuana during this to help with nausea. MOB response about THC usage included plan to go and try to get a medical marijuana card for the knee pain. DALLAS denies any other illicit substance use such as heroin, meth, cocaine, or any type of pills. Denies any type of alcohol usage during . Family History: DALLAS has a sister with some level of substance use history. Drug Screens: MOB with a positive drug screen for marijuana on 10/03/2019. No further testing noted. 's urine drug screen at delivery on 04/15/2020 was also positive for marijuana. Meconium drug screen is pending. Family/Social Stressors and/or concerns: No specific stressors identified. MOB did become tearful when this telegraphic typewriter installer addressed MOB current relationship with her own mother. There is maternal mental health history not currently being treated. Substance use during . Support Systems: DALLAS reports to have support from her [id number] who lives close by. Will be as a support when he is at home. MOB reports that she talks to her mother, but the relationship is not as close as it used to be. Depression/Shaken Baby/Safe Sleeping educated to mood and anxiety disorders, risk factors present, and reinforced importance to seek help and support. Will be states my babies when asked what MOB can do or does to help doing overwhelmed them. Educated to safe sleeping and shaking baby prevention, with written information provided as well. ASSESSMENT: Met with MOB in room, and the FOB was getting ready to go outside. This telegraphic typewriter installer was able then to speak privately with the MOB and address private topics prior to FOB returning. MOB cooperative with this telegraphic typewriter installer, answered questions, although answers not real expansive. MOB affect constricted, but showed more emotion when the topic of her mother was approached. MOB attributed the tears to hormones. MOB was engaged and attentive to the baby during social work visit. Handled the baby appropriately and gently. Upon FOB's return back to the room the FOB asked it was okay to come back in, as remembered from last delivery this telegraphic typewriter installer wanting to have one-on-one time with the MOB. FOB was polite and talkative with this telegraphic typewriter installer. MOB and FOB report to have needed supplies for the baby their home situation is much better place than 2 years ago. FOB reports he has been working very hard to be able to provide for his family and give the family more than he ever had himself. Did address marijuana usage with the MOB prior to the FOB returning back to the room. MOB reports intent for abstinence, as not trying to get my kids taken away. This telegraphic typewriter installer addressed the need to call [facility] children services, and that Monday would be in contact with the MOB after home-going. No reports by staff or documentation that this telegraphic typewriter installer noted regarding concerns about parent-child interactions or bonding. Safe Plan of Care for related to substance use: Attempt abstinence of substances. Is considering seeking out a medical marijuana card. If chose to use again in the future would not use around the children, or would wait until the children were in bed. PLAN: MOB and will discharge home with the FOB. [facility] resource list provided, as well as a mood and anxiety disorder packet. Will be calling [facility] children services related to substance exposed infant. No other services requested or indicated. -SUMAYA Ying, FABIANA *Information documented in this assessment generated with [employer]*
[2020-04-16] MEDS: Senna/Docusate Sodium 1 Tablet PO (12:06)
--- NOTE | 2020-04-16 15:00 | CASEMGMT ---
Social Work Labor and Delivery Unit Called [facility] Children Services and spoke with Roma Cardozo in the intake department, , extension [phone]. Referral due to substance exposed infant. Reported maternal and drug screen history. Reported brief maternal and histories. Reported MOB'S response to safe plan of care. Children services to follow-up with his family at home. Let children services now that family was discharged home already. -LUIS ANGEL Ying, DIRECTOR OF DEMENTIA OPERATIONS *Information generated in this note by the [employer] system.*
== END 2020-04-16 12:30 | disposition home or self-care (01) | DRG 785 ==
PROVIDERS: Admitting Provider Obstetrics & Gynecology; Referring Provider Obstetrics & Gynecology; Visit Provider Obstetrics & Gynecology
PROC: 10D00Z1 Extraction of Products of Conception, Low, Open Approach (ICD-10-PCS; CPT 59514; principal; 2020-04-15 07:15)
DX: O82 Encounter for cesarean delivery without indication (principal); Z3A.39 39 weeks gestation of pregnancy; Z37.0 Single live birth
CPT/HCPCS: 85025; 85027; 86850; 86900; 86901; 88302; 99218; J7120; A4216; G0378; J2405